=== PATIENT | female | born 1950 | race Caucasian/White ===

== ENCOUNTER 2020-04-21 08:11 | Outpatient (REF) | payer MEDICARE, SELFPAY ==
--- NOTE | 2020-04-21 | MM_ITS ---
EXAMINATION: MM SCREENING DIGITAL BREAST TOMOSYNTHESIS, BILATERAL CLINICAL INFORMATION: Screening. Asymptomatic. The lifetime risk of breast cancer based on the Tyrer-Cuzick Model is 5%. COMPARISON: Mammography: 05/17/2019, 04/12/2018, 03/07/2017, 04/03/2015, 03/14/2014, 11/02/2012 TECHNIQUE: Digital breast tomosynthesis is performed in both the craniocaudal and mediolateral oblique views along with computer-aided detection (CAD). Synthesized 2D images are generated from the tomosynthesis. FINDINGS: There are scattered areas of fibroglandular density (ACR BI-RADS breast composition Category b). There is a chronic macrolobulated nodule approximately 0.9 x 1.2 cm central 3:00 right breast similar to multiple prior exams. There is no interval mass or developing density or architectural abnormality. No abnormal calcifications. The axilla and skin contours are unremarkable. IMPRESSION: No significant changes from prior exams. ASSESSMENT: BI-RADS 2: Benign RECOMMENDATION: Routine annual mammography screening. This patient's information was entered into a reminder system with a target due date for their next mammogram.
== END 2020-04-21 08:12 | disposition home or self-care (01) ==
LOC: HO.MAMMO 08:11
PROVIDERS: PCP Internal Medicine; Visit Provider Internal Medicine
DX: Z12.31 Encounter for screening mammogram for malignant neoplasm of breast (principal)
CPT/HCPCS: 77063; 77067

== ENCOUNTER 2021-01-08 11:12 | Outpatient (REF) | payer MEDICARE, SELFPAY ==
--- NOTE | ~2021-01-08 | XR_ITS ---
EXAMINATION: XR CHEST CLINICAL INFORMATION: Asthma COMPARISON: None TECHNIQUE: 2 views of the chest were obtained. FINDINGS: The cardiac and mediastinal contours are normal. The lungs are clear. There is no pleural effusion or pneumothorax. There are degenerative changes of the body. XR/XR chest 2V IMPRESSION: No evidence for acute disease in the chest.
== END 2021-01-08 11:13 | disposition home or self-care (01) ==
LOC: HO.XRAY 11:12
PROVIDERS: PCP Internal Medicine; Visit Provider Internal Medicine
DX: J45.20 Mild intermittent asthma, uncomplicated (principal)
CPT/HCPCS: 71046

== ENCOUNTER 2021-04-26 08:33 | Outpatient (REF) | payer MEDICARE, SELFPAY ==
--- NOTE | ~2021-04-26 | MM_ITS ---
EXAMINATION: MM SCREENING DIGITAL BREAST TOMOSYNTHESIS, BILATERAL CLINICAL INFORMATION: Screening. Asymptomatic. The lifetime risk of breast cancer based on the Tyrer-Cuzick Model is 4%. COMPARISON: Mammography: 04/21/2020, 04/26/2019, 04/12/2018 TECHNIQUE: Digital breast tomosynthesis is performed in both the craniocaudal and mediolateral oblique views along with computer-aided detection (CAD). Synthesized 2D images are generated from the tomosynthesis. FINDINGS: There are scattered areas of fibroglandular density (ACR BI-RADS breast composition Category b). There are no significant masses, abnormal calcifications, or other abnormalities. Macrolobulated nodule central 3:00 right breast noted on prior exams is no longer demonstrated. MM/MM tomosynthesis screening BI IMPRESSION: No mammographic evidence of malignancy. ASSESSMENT: BI-RADS 2: Benign RECOMMENDATION: Routine annual mammography screening. This patient's information was entered into a reminder system with a target due date for their next mammogram.
== END 2021-04-26 08:34 | disposition home or self-care (01) ==
LOC: HO.MAMMO 08:33
PROVIDERS: Visit Provider Internal Medicine
DX: Z12.31 Encounter for screening mammogram for malignant neoplasm of breast (principal)
CPT/HCPCS: 77063; 77067

== ENCOUNTER 2021-05-28 08:01 | Outpatient (REF) | payer MEDICARE, SELFPAY ==
--- NOTE | ~2021-05-28 | MM_ITS ---
EXAMINATION: BONE DENSITOMETRY CLINICAL INDICATION: Other disorders of bone density and structure, right lower leg. COMPARISON: Previous BD dated 04/16/2019 and baseline BD dated 03/07/2017. TECHNIQUE: Using a [employer] DXA System (software version: 13.1) manufactured by [employer], dual-energy x-ray absorptiometry was performed of the lumbar spine and left hip. The images are of good technical quality. Summary results are attached. FINDINGS: AP SPINE L1-L4 (excluding L3): The data of L1-L4 has been changed to exclude the L3 vertebral body, because degenerative changes at this level may cause overestimation of lumbar spine density. Current: BMD 1.023 g/cm2, Z-score -0.6, T-score -1.2, osteopenia, 4.5% decrease from previous, 0.5% decrease from baseline (<5% change is not significant). Prior: BMD 1.071 g/cm2. Baseline: BMD 1.028 g/cm2. LEFT FEMUR, NECK: Current: BMD 0.800 g/cm2, Z-score -0.7, T-score -1.7, osteopenia. Prior: BMD 0.823 g/cm2. Baseline: BMD 0.864 g/cm2. LEFT FEMUR, TOTAL: Current: BMD 0.933 g/cm2, Z-score 0.1, T-score -0.6, normal, 5.2% decrease from previous, 6.6% decrease from baseline (<5% change is not significant). Prior: BMD 0.984 g/cm2. Baseline: BMD 0.999 g/cm2. IDENTIFIED RISK FACTORS: Menopause, hysterectomy, bilateral oophorectomy. HISTORY OF FRACTURE: None listed. MEDICATIONS: Calcium supplements or multivitamin, vitamin D. MM/XR DEXA axial skeleton IMPRESSION: 1. DIAGNOSIS: Osteopenia based on the lowest T-score value of -1.7 in the femoral neck applying World Health Organization criteria. 2. 10-YEAR FRACTURE RISK PREDICTION, FRAX: Major osteoporotic fracture (clinical spine, forearm, hip or shoulder) 9.7%. Hip fracture 1.5%. 3. Treatment Recommendations: NOF guidelines recommend consideration for treatment in postmenopausal women and men age 50 and older presenting with the following: -A hip or vertebral (clinical or morphometric) fracture. -T-score less than or equal to -2.5 at the femoral neck or spine after appropriate evaluation to exclude secondary causes. -Low bone mass at the hip or spine and a 10-year fracture probability by FRAX of greater than or equal to 3% for hip fracture or greater than or equal to 20% for major osteoporotic fracture based on the [place] adapted WHO algorithm. 4. Other Recommendations: All treatment decisions require clinical judgment and consideration of individual patient factors, including patient preferences, comorbidities, previous drug use, risk factors not captured in the FRAX model (e.g. frailty, falls, vitamin D deficiency, increased bone turnover, interval significant decline in bone density) and possible under or overestimation of fracture risk by FRAX. Additional medical evaluation for secondary cause of low bone mineral density may be appropriate. FUTURE SCAN RECOMMENDATION: People with diagnosed cases of osteoporosis or at high risk for fracture should have regular bone mineral density tests. For patients eligible for Medicare, routine testing is allowed once every 2 years. The testing frequency can be increased to one year for patients who have rapidly progressing disease, those who are receiving or discontinuing medical therapy to restore bone mass, or have additional risk factors.
== END 2021-05-28 08:02 | disposition home or self-care (01) ==
LOC: HO.MAMMO 08:01
PROVIDERS: Visit Provider Internal Medicine
DX: Z13.820 Encounter for screening for osteoporosis (principal); M85.861 Other specified disorders of bone density and structure, right lower leg; M85.80 Other specified disorders of bone density and structure, unspecified site; Z78.0 Asymptomatic menopausal state; Z90.722 Acquired absence of ovaries, bilateral; Z79.899 Other long term (current) drug therapy
CPT/HCPCS: 77080

== ENCOUNTER 2021-06-15 10:27 | Outpatient (REF) | payer MEDICARE, SELFPAY ==
[2021-06-15 10:30] LABS: MANUAL DIFF FLAG NO
[2021-06-15 10:36] LABS: Basophils Percent Auto 0.3 % (0-2); Eosinophils Absolute Auto 0.3 X10*3/uL (0.0-0.4); Eosinophils Percent Auto 2.5 % (0-4); Hematocrit 39.4 % (37.0-47.0); Hemoglobin 12.8 g/dl (12.0-16.0); Imm Gran Abs Auto 0.04 X10*3/uL (0.00-0.03); Imm Gran Pct Auto 0.4 % (0.0-0.4); Lymphocytes Absolute Auto 2.2 X10*3/uL (1.2-4.9); Lymphocytes Percent Auto 21.1 % (20-40); Mean Corpuscular HGB Conc 32.5 g/dl (31.0-35.0); Mean Corpuscular Hemoglobin 26.8 pg (27.0-33.0); Mean Corpuscular Volume 82.4 fL (80.0-98.0); Mean Platelet Volume 10.6 fL (9.4-12.3); Monocytes Absolute Auto 0.9 X10*3/uL (0.1-1.2); Monocytes Percent Auto 8.4 % (2-11); Neutrophils Absolute Auto 6.9 x10*3/uL (2.0-8.3); Neutrophils Percent Auto 67.3 % (45-73); Platelet Count 276 X10*3/uL (160-400); Red Blood Count 4.78 X10*6/uL (4.20-5.50); Red Cell Distribution Width 13.7 % (11.0-16.0); White Blood Count 10.2 X10*3/uL (4.8-10.8)
[2021-06-15 10:48] LABS: Alanine Aminotransferase 27 U/L (0-31); Alkaline Phosphatase 97 U/L (39-117); Anion Gap 13 (12-20); Aspartate Amino Transferase 22 U/L (5-31); Bilirubin Total 0.5 mg/dL (0.0-1.0); Blood Urea Nitrogen 18 mg/dL (9-16); Calcium 9.4 mg/dL (8.4-10.2); Carbon Dioxide 22 mmol/L (22-29); Chloride 111 mmol/L (96-108); Cholesterol 181 mg/dL; Estimated Glomerular Filt Rate > 60; Glucose Fasting 95 mg/dL (60-99); HDL Cholesterol 47 mg/dL; LDL Cholesterol Calculated 119 mg/dl; Potassium 4.3 mmol/L (3.3-5.1); Sodium 142 mmol/L (135-145); Total Protein 6.3 g/dL (6.5-8.0); Triglycerides 75 mg/dL
== END 2021-06-15 10:28 | disposition home or self-care (01) ==
LOC: HO.LNP 10:27
PROVIDERS: Visit Provider Internal Medicine
DX: Z00.00 Encounter for general adult medical examination without abnormal findings (principal); R09.89 Other specified symptoms and signs involving the circulatory and respiratory systems
CPT/HCPCS: 80053; 80061; 85025

== ENCOUNTER 2022-05-02 09:34 | Outpatient (REF) | payer MEDICARE, SELFPAY ==
--- NOTE | ~2022-05-02 | MM_ITS ---
EXAMINATION: MM SCREENING DIGITAL BREAST TOMOSYNTHESIS, BILATERAL CLINICAL INFORMATION: Screening. Asymptomatic. The lifetime risk of breast cancer based on the Tyrer-Cuzick Model is 3.6%. COMPARISON: Mammography: April 26, 2021 and studies dating back to April 03, 2015 TECHNIQUE: Digital breast tomosynthesis is performed in both the craniocaudal and mediolateral oblique views along with computer-aided detection (CAD). Synthesized 2D images are generated from the tomosynthesis. Additional left breast exaggerated craniocaudal view performed. FINDINGS: There are scattered areas of fibroglandular density (ACR BI-RADS breast composition Category b). There are no significant masses, abnormal calcifications, or other abnormalities. MM/MM tomosynthesis screening BI IMPRESSION: No significant changes from prior exam. ASSESSMENT: BI-RADS 1: Negative RECOMMENDATION: Routine annual mammography screening. This patient's information was entered into a reminder system with a target due date for their next mammogram.
== END 2022-05-02 09:35 | disposition home or self-care (01) ==
LOC: HO.MAMMO 09:34
PROVIDERS: PCP Internal Medicine; Visit Provider Internal Medicine
DX: Z12.31 Encounter for screening mammogram for malignant neoplasm of breast (principal)
CPT/HCPCS: 77063; 77067

== ENCOUNTER 2022-06-17 10:42 | Outpatient (REF) | payer MEDICARE, SELFPAY ==
[2022-06-17 10:58] LABS: MANUAL DIFF FLAG NO
[2022-06-17 11:27] LABS: Basophils Percent Auto 0.4 % (0-2); Eosinophils Absolute Auto 0.2 X10*3/uL (0.0-0.4); Eosinophils Percent Auto 1.7 % (0-4); Hematocrit 35.9 % (37.0-47.0); Hemoglobin 11.5 g/dl (12.0-16.0); Imm Gran Abs Auto 0.04 X10*3/uL (0.00-0.03); Imm Gran Pct Auto 0.4 % (0.0-0.4); Lymphocytes Absolute Auto 2.2 X10*3/uL (1.2-4.9); Lymphocytes Percent Auto 23.8 % (20-40); Mean Corpuscular Hemoglobin 26.8 pg (27.0-33.0); Mean Corpuscular Volume 83.7 fL (80.0-98.0); Monocytes Absolute Auto 0.8 X10*3/uL (0.1-1.2); Monocytes Percent Auto 8.7 % (2-11); Neutrophils Absolute Auto 6.1 x10*3/uL (2.0-8.3); Platelet Count 317 X10*3/uL (160-400); Red Blood Count 4.29 X10*6/uL (4.20-5.50); Red Cell Distribution Width 12.8 % (11.0-16.0); White Blood Count 9.3 X10*3/uL (4.8-10.8)
[2022-06-17 11:38] LABS: Appearance Urine Hazy; Color Urine Yellow; Glucose Urine UA Negative (Negative); Leukocyte Esterase Urine Negative (Negative); Nitrite Urine Negative (Negative); Specific Gravity - Urine 1.025 (1.005-1.025); Urine Blood Negative (Negative); Urine Ketones Negative (Negative); Urine Protein Negative (Neg-Trace)
[2022-06-17 11:47] LABS: Alanine Aminotransferase 20 U/L (0-31); Albumin Level 4.3 g/dL (3.5-5.0); Alkaline Phosphatase 92 U/L (39-117); Anion Gap 14 (12-20); Aspartate Amino Transferase 18 U/L (5-31); Blood Urea Nitrogen 20 mg/dL (9-16); Calcium 9.5 mg/dL (8.4-10.2); Carbon Dioxide 26 mmol/L (22-29); Chloride 104 mmol/L (96-108); Cholesterol 220 mg/dL; Estimated Glomerular Filt Rate 43; Glucose Fasting 105 mg/dL (60-99); HDL Cholesterol 47 mg/dL; LDL Cholesterol Calculated 151 mg/dl; Potassium 4.1 mmol/L (3.3-5.1); Sodium 140 mmol/L (135-145); Total Protein 6.6 g/dL (6.5-8.0); Triglycerides 110 mg/dL
[2022-06-17 11:54] LABS: Bacteria Urine Trace (None Seen); Hyaline Casts Urine 0-2 /LPF (0-2); RBC Urine 0-2 /HPF (0-2); Squamous Epithelial Cell Urine >20 /HPF (0-2); WBC Urine 0-5 /HPF (0-5)
[2022-06-17 12:11] LABS: Bilirubin Total 0.4 mg/dL (0.0-1.0)
== END 2022-06-17 10:43 | disposition home or self-care (01) ==
LOC: HO.LNP 10:42
PROVIDERS: Visit Provider Internal Medicine
DX: Z00.00 Encounter for general adult medical examination without abnormal findings (principal); I10 Essential (primary) hypertension
CPT/HCPCS: 80053; 80061; 81001; 85025

== ENCOUNTER 2022-07-14 10:46 | Outpatient (REF) | payer MEDICARE, SELFPAY ==
[2022-07-14 11:39] LABS: Folate 17.6 ng/mL (> or = 4.0); Vitamin B12 696 pg/mL (200-900)
[2022-07-14 11:42] LABS: TSH reflex Free T4 1.86 uIU/mL (0.32-4.0)
== END 2022-07-14 10:47 | disposition home or self-care (01) ==
LOC: HO.LNP 10:46
PROVIDERS: PCP Internal Medicine; Visit Provider Internal Medicine
DX: I10 Essential (primary) hypertension (principal); R26.89 Other abnormalities of gait and mobility; R27.9 Unspecified lack of coordination
CPT/HCPCS: 82607; 82746; 84443

== ENCOUNTER 2022-07-18 10:53 | Outpatient (REF) | payer MEDICARE, SELFPAY ==
[2022-07-18 10:55] LABS: MANUAL DIFF FLAG NO
[2022-07-18 11:15] LABS: Basophils Percent Auto 0.3 % (0-2); Eosinophils Absolute Auto 0.3 X10*3/uL (0.0-0.4); Eosinophils Percent Auto 2.3 % (0-4); Hematocrit 36.5 % (37.0-47.0); Imm Gran Abs Auto 0.06 X10*3/uL (0.00-0.03); Imm Gran Pct Auto 0.5 % (0.0-0.4); Lymphocytes Absolute Auto 2.8 X10*3/uL (1.2-4.9); Lymphocytes Percent Auto 22.2 % (20-40); Mean Corpuscular HGB Conc 32.9 g/dl (31.0-35.0); Mean Corpuscular Hemoglobin 27.1 pg (27.0-33.0); Mean Corpuscular Volume 82.4 fL (80.0-98.0); Monocytes Absolute Auto 1.1 X10*3/uL (0.1-1.2); Monocytes Percent Auto 8.6 % (2-11); Neutrophils Absolute Auto 8.2 x10*3/uL (2.0-8.3); Neutrophils Percent Auto 66.1 % (45-73); Platelet Count 377 X10*3/uL (160-400); Red Blood Count 4.43 X10*6/uL (4.20-5.50); Red Cell Distribution Width 13.1 % (11.0-16.0); White Blood Count 12.4 X10*3/uL (4.8-10.8)
== END 2022-07-18 10:54 | disposition home or self-care (01) ==
LOC: HO.LNP 10:53
PROVIDERS: Visit Provider Internal Medicine
DX: D64.9 Anemia, unspecified (principal)
CPT/HCPCS: 85025

== ENCOUNTER → 2022-07-27 13:41 | Outpatient (REF) | payer MEDICARE, SELFPAY ==
--- NOTE | 2022-07-27 13:45 | HM_ITS ---
cardiac event monitor: Technique: Patient was worked up with cardiac event monitor on 07/27/2022 for total period of 30 days. Compliance rate was 85%. Quality of data was adequate Findings: Baseline was normal sinus rhythm with heart rate within normal limits 82% of the time. No significant episodes of sinus tachycardia sinus bradycardia noted. No significant pauses or AV block noted. Frequent isolated ventricular ectopy noted, 3% of the time. No significant ventricular tachyarrhythmias noted Rare PACs noted with overall short episodes of paroxysmal atrial tachycardia noted. Patient reported multiple events, symptoms reported 12 times of racing or fast heart rate correlated with either PVCs or sinus tachycardia. symptoms of dizziness, nausea and other non reported symptoms correlated with sinus rhythm. Patient reported 10 times shortness of breath which correlated with sinus rhythm. Patient reported 1 episode of irregular heartbeat/ flutter that correlated which short run of paroxysmal atrial tachycardia. Conclusion: 1. Baseline was normal sinus rhythm without significant pauses 2. Frequent isolated PVCs noted With total burden of 3% 3. Patient's symptoms of racing of fast heart rate correlated with PVCs and 1 episode of fluttering correlated with short episode of paroxysmal atrial tachycardia. [facility]
== END ==
LOC: HO.CARD 13:41
PROVIDERS: PCP Internal Medicine; Visit Provider Internal Medicine
DX: R00.2 Palpitations (principal)
CPT/HCPCS: 93270

== ENCOUNTER 2022-10-06 12:04 | Outpatient (REF) | payer MEDICARE, SELFPAY ==
--- NOTE | ~2022-10-06 | US_ITS ---
EXAMINATION: US THYROID CLINICAL INFORMATION: Thyroid nodule. COMPARISON: None available. TECHNIQUE: Linear transducer grayscale and color Doppler examination with attention to the region of the thyroid. FINDINGS: SIZE: Measurements of the thyroid lobes and nodules are given in sagittal, anteroposterior and transverse dimensions respectively. Right Thyroid Lobe: 5.2 x 2.1 x 2.1 cm, volume 12.0 mL. Parenchyma: The gland echotexture is homogeneous. Thyroid vascularity is normal. Left Thyroid Lobe: 4.5 x 1.7 x 1.4 cm, volume 5.6 mL. Parenchyma: The gland echotexture is homogeneous. Thyroid vascularity is normal. Isthmus: 0.3 cm in maximum AP dimension. Estimated total number of nodules greater than or equal to 1 cm: 1. Ferris Wheel Attendant nodules are described as follows: 1. Location: Right mid. Size: 2.7 x 1.4 x 2.1 cm, volume 4.1 mL. Nodule characteristics: Composition: Solid (2). Echogenicity: Hypoechoic (2). Shape: Not taller than wide (0). Margins: Smooth (0). Echogenic Foci: None (0). ACR TI-RADS total points: 4 ACR TI-RADS category: 4 NODES: No lymphadenopathy is seen in the tissue surrounding the thyroid gland. US/US thyroid IMPRESSION: Right Midpole 2.7 cm TI-RADS 4 nodule. Per ACR criteria given size equal to or greater than 1.5 cm, FNA is recommended ACR TI-RADS RECOMMENDATION REFERENCE: Ultrasound-guided fine-needle aspiration, followup ultrasound, no further follow up. * TR1 (0 point) and TR2 (2 points): No FNA or follow up. * TR3 (3 points): FNA if more than or equal to 2.5 cm in maximum dimension, followup ultrasound in 1, 3 and 5 years if 1.5 to 2.4 cm in maximum dimension. * TR4 (4-6 points): FNA if more than or equal to 1.5 cm in maximum dimension, followup ultrasound in 1, 2, 3 and 5 years if 1 to 1.4 cm in maximum dimension. * TR5 (more than or equal to 7 points): FNA if more than or equal to 1 cm in maximum dimension, followup ultrasound every year for 5 years if 0.5 to 0.9 cm in maximum dimension. * TR3, TR4 or TR5 nodules that are below the size threshold for followup receive no follow up.
== END 2022-10-06 12:05 | disposition home or self-care (01) ==
LOC: HO.US 12:04
PROVIDERS: Absent Provider Psychiatry & Neurology Neurology; PCP Internal Medicine; Referring Provider Internal Medicine Cardiovascular Disease; Visit Provider Internal Medicine
DX: E04.1 Nontoxic single thyroid nodule (principal)
CPT/HCPCS: 76536

== ENCOUNTER → 2022-10-19 14:39 | Outpatient (BNVA) | payer MEDICARE, SELFPAY | PROVIDERS: PCP Internal Medicine; Referring Provider Internal Medicine; Visit Provider Internal Medicine | DX: R00.2 Palpitations (principal); I34.0 Nonrheumatic mitral (valve) insufficiency | CPT/HCPCS: 93005; 99202 ==

== ENCOUNTER → 2022-10-28 09:54 | Outpatient (BNVA) | payer MEDICARE, SELFPAY | PROVIDERS: PCP Internal Medicine; Visit Provider Physician Assistant | DX: M48.02 Spinal stenosis, cervical region (principal) | CPT/HCPCS: 99202 ==

== ENCOUNTER 2022-11-04 | Outpatient (REF) | payer MEDICARE, SELFPAY | END 2022-11-04 00:01 | LOC: HO.US | PROVIDERS: PCP Internal Medicine; Visit Provider Internal Medicine | DX: E04.1 Nontoxic single thyroid nodule (principal) | CPT/HCPCS: 88172; 88173; 88177; 88305 ==

== ENCOUNTER → 2022-11-04 07:59 | Outpatient (REF) | payer MEDICARE, SELFPAY ==
--- NOTE | ~2022-11-04 | US_ITS ---
PROCEDURE: ULTRASOUND-GUIDED FINE-NEEDLE ASPIRATION CLINICAL INFORMATION: Right thyroid nodule. COMPARISON: Previous thyroid ultrasound September 2022. TECHNIQUE: Procedure and risks and benefits including bleeding and infection were discussed with the patient and informed consent was obtained. The right neck was prepped and draped in the usual sterile fashion. The skin and soft tissues were anesthetized with 1% lidocaine plain. Using ultrasound guidance and a 25-gauge needle, access to the nodule in the posterior mid right thyroid gland was obtained. Four 25-gauge specimens were obtained. There was no complication. FINDINGS: There is a 2.5 x 1.3 x 1.4 cm nodule in the posterior mid right lobe that was targeted for fine-needle aspiration. US/US guided fine needle asp IMPRESSION: Ultrasound-guided right thyroid biopsy.
--- NOTE | 2022-11-04 08:02 | CA_ITS ---
Transthoracic Echocardiogram Patient (Last, First, Middle): Aretha Khan L Gender: Female Date of : 1950 Age: 72 Procedure Date: 11/04/2022 Procedure Type: Transthoracic Echocardiogram Location: OP Height: 167.64 cm Weight: 87.09 kg BSA: 1.97 m2 Heart Rate: 64 bpm BP: 132 / 64 mmHg Investment Banking Associate: SB Referring MD: Robin Argueta MD Symptoms: I34.0 - Nonrheumatic mitral (valve) insufficiency Study Quality: Adequate ECG Rhythm: Sinus Conclusions: - Mildly increased left ventricular cavity size. There is normal left ventricular wall thickness. The left ventricular systolic function is normal. The visually estimated ejection fraction is between 55-60%. - Normal right ventricular cavity size and systolic function. - There is moderate mitral annular calcification. There is no mitral valve regurgitation. There is no mitral valve stenosis. Findings Left Ventricle Mildly increased left ventricular cavity size. There is normal left ventricular wall thickness. The left ventricular systolic function is normal. The visually estimated ejection fraction is between 55-60%. Abnormal diastolic function is noted. Spectral Doppler is indicative of an impaired relaxation filling pattern. E/E prime ratio is between 8 and 15 consistent with indeterminate filling pressures. Right Ventricle Normal right ventricular cavity size and systolic function. Atria The left atrium is mildly dilated. The right atrium is normal in size. Aortic Valve Normal aortic valve structure and function. There is no aortic valve stenosis. There is mild aortic valve regurgitation. Mitral Valve The mitral valve appears normal. There is moderate mitral annular calcification. There is no mitral valve regurgitation. There is no mitral valve stenosis. Pulmonic Valve The pulmonic valve is likely normal. Tricuspid Valve Normal tricuspid valve structure and function. There is trace tricuspid valve regurgitation. Normal right atrial pressure. There is no evidence of pulmonary hypertension. Great Vessels All visible segments of the aorta are normal in size. The visualized portions of the pulmonary artery and branches are normal. Venous The inferior vena cava is normal in size and collapses greater than 50% with inspiration. Pericardium/Pleural There is no evidence of pericardial effusion. Measurements 2D Linear Measurements IVSd: 0.78 0.6-0.9/0.6-1.0 cm LVIDd: 5.12 3.9-5.3/4.2-5.9 cm LVIDd Index: 2.60 2.4-3.2/2.2-3.1 cm/m2 LVIDs: 3.49 2.0-3.6 cm LVPWd: 0.70 0.7-1.1 cm LA Diam: 3.80 2.7-3.8/3.0-4.0 cm LAIDs Index: 1.93 1.5-2.3 cm/m2 LV Mass: 159.00 67-162/88-224 g LV Mass Index: 80.71 43-95/49-115 g/m2 LVOT Diam: 1.90 3.0+(-)1.3 cm 2D Systolic Function EF 4C: 62.50 >55% EF 2C: 60.50 >55% EF BiP: 62.00 >55% Mitral Valve MV Pk E: 0.71 MV PK A: 0.81 MV Decel Time: 165.00 E/A: 0.90 E'Lateral: 8.27 E'Medial: 5.11 E/E' Med: 13.80 E/E' Lat: 8.50 PHT: 48.00 MVA PHT: 4.58 Decel [place]: 4.27 Aortic Valve AoV Pk Fredy: 1.84 AoV Mn Fredy: 1.20 AoV VTI: 0.38 AoV Pk Grad: 14.00 Aov Mn Grad: 7.00 CHASE Cont.VTI: 2.53 AI Pk Fredy: 4.40 AI [place]: 2.48 LVOT LVOT Pk Fredy: 1.57 LVOT Mn Fredy: 1.07 LVOT VTI: 0.34 LVOT Pk Grad: 10.00 LVOT Mn Grad: 6.00 LVOT Diam: 1.90 LVOT Area: 2.84 Diastolic Function MV Pk E: 0.71 MV Pk A: 0.81 E/A: 0.90 E'Medial: 5.11 E/E' Med: 13.80 E' Laterial: 8.27 E/E' Lat: 8.50 Right Ventricle TAPSE (mm): 19.10 TVS' Fredy: 10.90 Tricuspid Valve TR Pk Fredy: 2.44 TR Pk Grad: 24.00 RA Press: 3.00 RVSP: 27.00 Great Vessels Aorta Sinus of Valsalva: 3.10 2.0-3.5 cm Ao Asc: 3.10 2.1-3.4 cm Pulmonary Veins Pulm Vein S/D 1.90 Pulmonary Valve PV Pk Fredy: 0.75 Peak PV Grad: 2.00 Updated in Other Vendor System with Status of Final Jesse Davidson MD electronically signed on 11/05/2022 9:32:51 PM with status of Final
[2022-11-04] MEDS: Lidocaine HCl 1 % MPF 5 ML VIAL SUBCUT (10:24)
== END ==
LOC: HO.CARD 07:59
PROVIDERS: PCP Internal Medicine; Visit Provider Internal Medicine
DX: I34.0 Nonrheumatic mitral (valve) insufficiency (principal); E04.1 Nontoxic single thyroid nodule
CPT/HCPCS: 10005; 93306

== ENCOUNTER → 2022-12-15 11:35 | Outpatient (BNVA) | payer MEDICARE, SELFPAY | PROVIDERS: PCP Internal Medicine; Visit Provider Internal Medicine | DX: E04.1 Nontoxic single thyroid nodule (principal) | CPT/HCPCS: 99202 ==

== ENCOUNTER 2022-12-16 08:54 | Outpatient (REF) | payer MEDICARE, SELFPAY ==
[2022-12-16 12:27] LABS: Free T4 (Free Thyroxine) 0.96 ng/dL (0.71-1.85)
== END 2022-12-16 08:55 | disposition home or self-care (01) ==
LOC: HO.WFDLDS 08:54
PROVIDERS: Visit Provider Internal Medicine
DX: E04.1 Nontoxic single thyroid nodule (principal)
CPT/HCPCS: 36415; 84439; 84443

== ENCOUNTER 2022-12-27 14:06 | Outpatient (REF) | payer MEDICARE, SELFPAY ==
--- NOTE | ~2022-12-27 | CT_ITS ---
EXAMINATION: CT SOFT TISSUE NECK WITHOUT CONTRAST CLINICAL INFORMATION: Nontoxic single thyroid nodule. COMPARISON: Thyroid ultrasound October 06, 2022. TECHNIQUE: Helical imaging was performed in the axial plane with generation of coronal and sagittal reformatted images. This CT examination was performed using dose optimization techniques as appropriate, variously including the following: *Automated exposure control *Adjustment of mA and/or kV according to patient size (this includes techniques or standardized protocols for targeted exams where dose is matched to indication/reason for exam; i.e. extremities or head) *Use of iterative reconstruction technique DLP: 360 mGy-cm FINDINGS: There is a 1.9 cm nodule within the right lobe of the thyroid gland which has been diagnostically characterized on prior thyroid ultrasound. There is no inflammation within the perithyroidal tissues. No pretracheal or prelaryngeal lymph nodes are seen. No enlarged, calcified, or cystic cervical chain lymph nodes are seen. The parotid and submandibular glands appear normal. The pharyngeal and laryngeal contours appear normal. There is no consolidation within the lungs. No acute intracranial abnormality is seen. Advanced degenerative changes are seen within the cervical spine. There is moderate to severe spinal canal stenosis at C5-C6. Multilevel high-grade neural foraminal stenosis is also demonstrated. CT/CT soft tissue neck wo IV con IMPRESSION: 1. No neck mass or suspicious lymphadenopathy identified. A 1.9 cm nodule is seen within the right lobe of the thyroid gland which has been diagnostically characterized on prior thyroid ultrasound. 2. Incidentally noted advanced degenerative changes in the cervical spine with moderate to severe spinal canal stenosis at C5-C6 and multilevel high-grade neural foraminal stenosis.
== END 2022-12-27 14:07 | disposition home or self-care (01) ==
LOC: HO.CT 14:06
PROVIDERS: PCP Internal Medicine; Visit Provider Internal Medicine
DX: E04.1 Nontoxic single thyroid nodule (principal)
CPT/HCPCS: 70490

== ENCOUNTER 2023-03-23 10:40 | Outpatient (REF) | payer MEDICARE, SELFPAY ==
[2023-03-23] MEDS: Lidocaine HCl 1 % MPF 5 ML VIAL SUBCUT (14:01)
== END 2023-03-23 10:41 | disposition home or self-care (01) ==
LOC: HO.US 10:40
PROVIDERS: PCP Internal Medicine; Visit Provider Internal Medicine
DX: E04.1 Nontoxic single thyroid nodule (principal)
CPT/HCPCS: 10005; 88173; 88305

== ENCOUNTER 2023-05-05 09:28 | Outpatient (REF) | payer MEDICARE, SELFPAY | END 2023-05-05 09:29 | disposition home or self-care (01) | LOC: HO.MAMMO 09:28 | PROVIDERS: PCP Internal Medicine; Visit Provider Internal Medicine | DX: Z12.31 Encounter for screening mammogram for malignant neoplasm of breast (principal) | CPT/HCPCS: 77063; 77067 ==

== ENCOUNTER → 2023-05-05 09:45 | Outpatient (BNV) | payer MEDICARE, SELFPAY | PROVIDERS: PCP Internal Medicine; Visit Provider Radiology Diagnostic Radiology | DX: Z12.31 Encounter for screening mammogram for malignant neoplasm of breast (principal) | CPT/HCPCS: 77063; 77067 ==

== ENCOUNTER 2023-07-18 09:20 | Outpatient (REF) | payer MEDICARE, SELFPAY ==
[2023-07-18 11:12] LABS: MANUAL DIFF FLAG NO
[2023-07-18 11:20] LABS: Basophils Percent Auto 0.3 % (0-2); Eosinophils Absolute Auto 0.2 X10*3/uL (0.0-0.4); Eosinophils Percent Auto 1.8 % (0-4); Hemoglobin 12.3 g/dl (12.0-16.0); Imm Gran Abs Auto 0.03 X10*3/uL (0.00-0.03); Imm Gran Pct Auto 0.3 % (0.0-0.4); Lymphocytes Absolute Auto 1.5 X10*3/uL (1.2-4.9); Mean Corpuscular HGB Conc 33.2 g/dl (31.0-35.0); Mean Corpuscular Hemoglobin 26.6 pg (27.0-33.0); Mean Corpuscular Volume 80.1 fL (80.0-98.0); Mean Platelet Volume 9.4 fL (9.4-12.3); Monocytes Absolute Auto 0.8 X10*3/uL (0.1-1.2); Monocytes Percent Auto 8.8 % (2-11); Neutrophils Absolute Auto 6.9 x10*3/uL (2.0-8.3); Neutrophils Percent Auto 72.8 % (45-73); Platelet Count 274 X10*3/uL (160-400); Red Blood Count 4.62 X10*6/uL (4.20-5.50); Red Cell Distribution Width 13.6 % (11.0-16.0); White Blood Count 9.5 X10*3/uL (4.8-10.8)
[2023-07-18 12:25] LABS: Alanine Aminotransferase 23 U/L (0-31); Albumin Level 4.3 g/dL (3.5-5.0); Alkaline Phosphatase 102 U/L (39-117); Anion Gap 12 (12-20); Aspartate Amino Transferase 19 U/L (5-31); Bilirubin Total 0.3 mg/dL (0.0-1.0); Blood Urea Nitrogen 22 mg/dL (9-16); Calcium 9.7 mg/dL (8.4-10.2); Carbon Dioxide 24 mmol/L (22-29); Chloride 107 mmol/L (96-108); Cholesterol 217 mg/dL (<200); Estimated Glomerular Filt Rate 52; Glucose Fasting 104 mg/dL (60-99); HDL Cholesterol 54 mg/dL (>40); LDL Cholesterol Calculated 144 mg/dL (<100); Potassium 4.3 mmol/L (3.3-5.1); Sodium 139 mmol/L (135-145); Total Protein 7.2 g/dL (6.5-8.0); Triglycerides 95 mg/dL (<150)
[2023-07-18 12:46] LABS: TSH reflex Free T4 2.25 uIU/mL (0.32-4.0)
== END 2023-07-18 09:21 | disposition home or self-care (01) ==
LOC: HO.WFDLDS 09:20
PROVIDERS: Visit Provider Internal Medicine
DX: I10 Essential (primary) hypertension (principal); D72.829 Elevated white blood cell count, unspecified; E04.1 Nontoxic single thyroid nodule
CPT/HCPCS: 36415; 80053; 80061; 84443; 85025

== ENCOUNTER 2024-05-10 09:11 | Outpatient (REF) | payer MEDICARE, SELFPAY ==
--- NOTE | ~2024-05-10 | MM_ITS ---
EXAMINATION: MM SCREENING DIGITAL BREAST TOMOSYNTHESIS, BILATERAL CLINICAL INFORMATION: Screening. Asymptomatic. COMPARISON: Mammography: Comparison is made with available priors TECHNIQUE: Digital breast mammography with tomosynthesis is performed in both the craniocaudal and mediolateral oblique views along with computer-aided detection (CAD). FINDINGS: There are scattered areas of fibroglandular density (ACR BI-RADS breast composition Category b). There are no significant masses, abnormal calcifications, or other abnormalities. MM/MM tomosynthesis screening BI IMPRESSION: No mammographic evidence of malignancy. ASSESSMENT: BI-RADS BI-RADS 1 - Negative RECOMMENDATION: Routine annual mammography screening. 1 year F/U This examination should not preclude the clinical evaluation of a suspicious palpable abnormality. This patient's information was entered into a reminder system with a target due date for their next mammogram. Electronically signed by: Alyssa Dupont DO 05/17/2024 04:23 PM [facility]
== END 2024-05-10 09:12 | disposition home or self-care (01) ==
LOC: HO.MAMMO 09:11
PROVIDERS: PCP Internal Medicine; Visit Provider Internal Medicine
DX: Z12.31 Encounter for screening mammogram for malignant neoplasm of breast (principal)
CPT/HCPCS: 77063; 77067

== ENCOUNTER → 2024-05-10 09:45 | Outpatient (BNV) | payer MEDICARE, SELFPAY | PROVIDERS: PCP Internal Medicine; Visit Provider Internal Medicine | DX: Z12.31 Encounter for screening mammogram for malignant neoplasm of breast (principal) | CPT/HCPCS: 77063; 77067 ==

== ENCOUNTER 2024-07-25 09:57 | Outpatient (REF) | payer MEDICARE, SELFPAY ==
[2024-07-25 11:12] LABS: MANUAL DIFF FLAG NO
[2024-07-25 11:24] LABS: Basophils Percent Auto 0.4 % (0-2); Eosinophils Absolute Auto 0.1 X10*3/uL (0.0-0.4); Eosinophils Percent Auto 1.3 % (0-4); Hematocrit 37.5 % (37.0-47.0); Hemoglobin 12.3 g/dl (12.0-16.0); Imm Gran Abs Auto 0.03 X10*3/uL (0.00-0.03); Imm Gran Pct Auto 0.3 % (0.0-0.4); Lymphocytes Absolute Auto 1.8 X10*3/uL (1.2-4.9); Lymphocytes Percent Auto 18.9 % (20-40); Mean Corpuscular HGB Conc 32.8 g/dl (31.0-35.0); Mean Corpuscular Hemoglobin 26.2 pg (27.0-33.0); Mean Platelet Volume 9.5 fL (9.4-12.3); Monocytes Absolute Auto 0.7 X10*3/uL (0.1-1.2); Monocytes Percent Auto 7.2 % (2-11); Neutrophils Absolute Auto 6.6 x10*3/uL (2.0-8.3); Neutrophils Percent Auto 71.9 % (45-73); Platelet Count 340 X10*3/uL (160-400); Red Blood Count 4.69 X10*6/uL (4.20-5.50); Red Cell Distribution Width 14.5 % (11.0-16.0); White Blood Count 9.3 X10*3/uL (4.8-10.8)
[2024-07-25 12:19] LABS: Alanine Aminotransferase 20 U/L (0-31); Albumin Level 4.2 g/dL (3.5-5.0); Alkaline Phosphatase 95 U/L (39-117); Anion Gap 10 (12-20); Aspartate Amino Transferase 22 U/L (5-31); Bilirubin Total 0.3 mg/dL (0.0-1.0); Blood Urea Nitrogen 24 mg/dL (9-16); Calcium 9.5 mg/dL (8.4-10.2); Carbon Dioxide 26 mmol/L (22-29); Chloride 109 mmol/L (96-108); Cholesterol 232 mg/dL (<200); Estimated Glomerular Filt Rate 47; Glucose Fasting 90 mg/dL (60-99); HDL Cholesterol 47 mg/dL (>40); LDL Cholesterol Calculated 163 mg/dL (<100); Potassium 4.2 mmol/L (3.3-5.1); Sodium 141 mmol/L (135-145); Total Protein 7.5 g/dL (6.5-8.0); Triglycerides 112 mg/dL (<150)
== END 2024-07-25 09:58 | disposition home or self-care (01) ==
LOC: HO.WFDLDS 09:57
PROVIDERS: Visit Provider Internal Medicine
DX: Z00.00 Encounter for general adult medical examination without abnormal findings (principal); I10 Essential (primary) hypertension; D72.829 Elevated white blood cell count, unspecified
CPT/HCPCS: 36415; 80053; 80061; 85025

== ENCOUNTER 2024-08-01 10:51 | Outpatient (REF) | payer MEDICARE, SELFPAY ==
[2024-08-01 11:16] LABS: Appearance Urine Clear; Color Urine Yellow; Glucose Urine UA Negative (Negative); Leukocyte Esterase Urine Negative (Negative); Nitrite Urine Negative (Negative); PH 5.5 (5.0-9.0); Urine Blood Negative (Negative); Urine Ketones Negative (Negative); Urine Protein Negative (Neg-Trace)
== END 2024-08-01 10:52 | disposition home or self-care (01) ==
LOC: HO.LNP 10:51
PROVIDERS: Visit Provider Internal Medicine
DX: Z00.00 Encounter for general adult medical examination without abnormal findings (principal); I10 Essential (primary) hypertension; D72.829 Elevated white blood cell count, unspecified
CPT/HCPCS: 81003

== ENCOUNTER 2025-01-30 08:37 | Outpatient (REF) | payer MEDICARE, SELFPAY ==
--- OUTSIDE RECORDS SUMMARY | 2025-01-30 03:15 | XMS_ITS ---
Author Organization Daniel Joiner MD Address [address] [place] [address] [phone] Care Team Providers Care Pelt Dropper Name Role Phone Daniel Joiner Primary Care Provider REASON FOR VISIT FASTING LIPIDS Encounters Encounter Location Date Provider Diagnosis Daniel Joiner MD [address] [place] [address] [place] [phone] 01/30/2025 Daniel Joiner Hypercholesterolemia E78.00 Assessments Encounter Date Diagnosis (ICD Code) Assessment Notes Treatment Notes Treatment Clinical Notes Section Notes 01/30/2025 Hypercholesterolemia (ICD-10 - E78.00) Plan Of Treatment Pending Test Test Name Order Date Lipid Panel with Reflex 01/30/2025 Next Appt Details Provider Name:Daniel chandler, 02/04/2025 09:00:00 AM, [address] [place] [address], [address], [phone], Provider Name:Daniel chandler, 07/29/2025 07:45:00 AM, [address] [place] [address], [address], [phone], Provider Name:Daniel chandler, 08/04/2025 10:30:00 AM, [address] [place] [address], [address], [phone], Progress Notes * Aretha KHAN LDOB:1949 (74 yo F)Acc No.[id number]:01/30/2025 Progress Note Patient: Aretha KOEHLER Provider: Hilda Joiner MD :1950 A ge:74 Y S ex:Female Date:01/30/2025 Address:[address] [place] [address] [address], [id number] Subjective: * Chief Complaints: * 1 . [...] Pending * Provider: Hilda Joiner MD Date: 01/30/2025 Generated for Nisreen lockwood/Jonathon/Flashitting on: 01/30/2025 09:00 AM EDT
[2025-01-30 11:51] LABS: Cholesterol 237 mg/dL (<200); HDL Cholesterol 49 mg/dL (>40); Triglycerides 122 mg/dL (<150)
== END 2025-01-30 08:38 | disposition home or self-care (01) ==
LOC: HO.WFDLDS 08:37
PROVIDERS: Visit Provider Internal Medicine
DX: E78.00 Pure hypercholesterolemia, unspecified (principal)
CPT/HCPCS: 36415; 80061

== ENCOUNTER 2025-05-09 09:59 | Outpatient (REF) | payer MEDICARE, SELFPAY ==
--- OUTSIDE RECORDS SUMMARY | 2023-10-23 11:02 | XMS_ITS | Encounter Summary ---
Author Organization [facility] Address [address] [place] [address] Phone Care Team Providers Care Psychological Tests Sales Agent Name Role Phone Daniel Joiner MD Primary Care Provider Encounter Details Date Type Department Care Team (Late st Contact Info) Description 10/23/2023 11:02 AM EDT Hospital Encounter [facility] [address] [place] [id number] Ever Flannery PA-C [address] [place] [phone] Social History Tobacco Use Types Packs/Day Years Used Date Smoking Tobacco: Never Smokeless Tobacco: Never Alcohol Use Standard Drinks/Week Comments Not Currently 0 (1 standard drink = 0.6 oz pur e alcohol) Education Answer Date Recorded Are you interested in more education? Not on shannon e 11/05/2022 Are you concerned about learning? Not on file 11/05/2022 No 11/05/2022 No 11/05/2022 Digital Access Answer Date Recorded No 12/04/2022 No 12/04/2022 Reliable internet access at home? Not on file 12/04/2022 Device with a working camera? Not on file Comments Unknown Sex and Gender Information Value Date Recorded Sex Assigned at Not on file Legal Sex Female 8:01 AM EDT Gender Identity Not on file Sexual Orientation Not on file documented as of this encounter Plan of Treatment Not on file documented as of this encounter Procedures Procedure Name Priority Date/Time Associated Diagnosis Comments XR CHEST PA AND LATERAL 2 VIEWS Urgent/patient waiting 10/23/2023 11:06 AM EDT Bronchitis documented in this encounter Results * XR CHEST PA AND LATERAL 2 VIEWS (10/23/2023 11:06 AM EDT) Anatomical Region Laterality Modality Chest Computed Radiogr aphy 10/23/2023 11:4 1 AM EDT Impressions 10/23/2023 11:42 AM EDT No acute findings. Narrative 10/23/2023 11:42 AM EDT XR CHEST PA AND LATERAL 2 VIEWS COMPARISON: None FINDINGS: Lungs: Clear lungs. Pleura: No pleural effusion. No pneumothorax Heart/Mediastinum: Heart size normal. Atherosclerotic calcifications in aorta. Bones/Soft Tissues: No acute finding Procedure Note Santos Hussein MD, EB - 10/23/2023 XR CHEST PA AND LATERAL 2 VIEWS COMPARISON: None FINDINGS: Lungs: Clear lungs. Pleura: No pleural effusion. No pneumothorax Heart/Mediastinum: Heart size normal. Atherosclerotic calcifications inaorta. Bones/Soft Tissues: No acute finding IMPRESSION: No acute findings. Ever Flannery PA-C IMG XR CHEST Final Result documented in this encounter Visit Diagnoses Not on filedocumented in this encounter Additional Health Concerns Infection Onset Date Last Indicated Resolved Time CoV-Risk 10/23/2023 10/23/2023 11/03/2023 1:22 AM EDT documented as of this encounter Care Teams Psychological Tests Sales Agent Relationship Specialty Start Date End Date Daniel Joiner MD [address] [place] [address] [place] [id number] PCP - General Internal Medicine 02/12/21 documented as of this encounter Additional Source Comments The information contained in this document represents components of the legal health record. It is not the complete legal health record.[facility]
--- OUTSIDE RECORDS SUMMARY | 2024-08-12 06:44 | XMS_ITS ---
Author Organization Daniel Joiner MD Address [address] [place] [phone] Care Team Providers Care Senior Budget Analyst Name Role Phone Daniel Joiner Primary Care Provider REASON FOR VISIT REFILLS Medications Medication SIG (Take, Route, Frequency, Duration) Notes Start Date End Date Status Lisinopril-hydroCHLOROthia zide 10-12.5 MG TAKE 1 TABLET BY MOUTH EVERY DAY FOR 30 DAYS Orally Once a day for 90 days Active Zolpidem Tartrate 5 MG 1 tablet at bedti va as needed Orally Once a day for 10 days 08/12/2024 Active Encounters Encounter Location Date Provider Diagnosis Daniel Joiner MD [address] [place] [phone] 08/12/2024 Daniel Joiner Dysthymia F34.1 and Benign essential hypertension I10 Assessments Encounter Date Diagnosis (ICD Code) Assessment Notes Treatment Notes Treatment Clinical Notes Section Notes 08/12/2024 Dysthymia (ICD-10 - F34.1) 08/12/2024 Benign essential hypertension (ICD-10 - I10) Plan Of Treatment Medication Medication Name Sig Start Date Stop Date Notes Lisinopril-hydroCHLOROthiazi de 10-12.5 MG TAKE 1 TABLET BY MOUTH EVERY DAY FOR 30 DAYS Orally Once a day for 90 days Zolpidem Tartrate 5 MG 1 tablet at bedti me as needed Orally Once a day for 10 days 08/12/2024 Next Appt Details Provider Name:Daniel Ryan ier, 05/15/2025 10:45:00 AM, [address], [address], [place], [place], [phone], Provider Name:Daniel Ryan ier, 07/29/2025 07:45:00 AM, [address] [place] [address], Suite [facility], [place], [place], [phone], Provider Name:Daniel Ryan ier, 08/04/2025 10:30:00 AM, [address] [place] [address], Suite [facility], [place], [place], [phone], Progress Notes * Aretha KHAN LDOB:1949 (74 yo F)Acc No.[id number]:08/12/2024 Patient: Chip Aretha SANTIAGO :1950 A ge:74 Y S ex:Female Address:[address] [place] [address] [address], [place] [address] * Refills Refill Zolpidem Tartrate Tablet, 5 MG, Orally, 10 Tablet, 1 tablet at bedtime as needed, Once a day, 10 days, Refills=0 Refill Lisinopril-hydroCHLOROthiazide Tablet, 10-12.5 MG, Orally, 90, TAKE 1 TABLET BY MOUTH EVERY DAY FOR 30 DAYS, Once a day, 90 days, Refills=3 * true * Date: Generated for Nisreen lockwood/Jonathon/Smileysmitting on: 11:14 AM EDT
--- OUTSIDE RECORDS SUMMARY | 2024-10-18 03:36 | XMS_ITS ---
Author Organization Daniel Joiner MD Address [address] [place] [address] [phone] Care Team Providers Care Continuous Miner Name Role Phone Daniel Joiner Primary Care Provider [phone] REASON FOR VISIT New Refill Request Encounters Encounter Location Date Provider Diagnosis Daniel Joiner MD 10 [facility] [address] [place] [address] [phone] 10/18/2024 Daniel Joiner Plan Of Treatment Next Appt Details Provider Name:Daniel chandler, 05/15/2025 10:45:00 AM, [address] [place] [address], [address], [phone], Provider Name:Daniel chandler, 07/29/2025 07:45:00 AM, [address] [place] [address], [address], [phone], Provider Name:Daniel chandler, 08/04/2025 10:30:00 AM, [address] [place] [address], [address], [phone], Progress Notes * Aretha KHAN LDOB:1949 (74 yo F)Acc No.[id number]:10/18/2024 Patient: Aretha KOEHLER :1950 A ge:74 Y S ex:Female Address:[address] [place] [address] [address], [place] [address] * true * Date: Generated for Nisreen lockwood/Jonathon/Miladyransmitting on: 11:13 AM EDT
--- OUTSIDE RECORDS SUMMARY | 2024-10-18 03:36 | XMS_ITS ---
Author Organization Daniel Joiner MD Address [address] [place] [address] [phone] Care Team Providers Care Lathe Tender Name Role Phone Daniel Joiner Primary Care Provider REASON FOR VISIT New Refill Request Encounters Encounter Location Date Provider Diagnosis Daniel Joiner MD 10 [facility] [address] [place] [address] [phone] 10/18/2024 Daniel Joiner Plan Of Treatment Next Appt Details Provider Name:Daniel chandler, 05/15/2025 10:45:00 AM, [address] [place] [address], [address], [phone], Provider Name:Daniel chandler, 07/29/2025 07:45:00 AM, [address] [place] [address], [address], [phone], Provider Name:Daniel chandler, 08/04/2025 10:30:00 AM, [address] [place] [address], [address], [phone], Progress Notes * Aretha KHAN LDOB:1949 (74 yo F)Acc No.[id number]:10/18/2024 Patient: Aretha KOEHLER :1950 A ge:74 Y S ex:Female Address:[address] [place] [address] [address], [place] [address] * true * Date: Generated for Nisreen lockwood/Jonathon/Miladyransmitting on: 11:13 AM EDT
--- OUTSIDE RECORDS SUMMARY | 2025-01-28 17:12 | XMS_ITS ---
Author Organization Daniel Joiner MD Address [address] [place] [address] [phone] Care Team Providers Care Steward/Stewardess Economy Class Name Role Phone Daniel Joiner Primary Care Provider [phone] REASON FOR VISIT New Refill Request Medications Medication SIG (Take, Route, Fr equency, Duration) Notes Start Date End Date Status Zolpidem Tartrate 5 MG 1 tablet at bedti me as needed Orally Once a day for 10 days 01/30/2025 Ac tive Encounters Encounter Location Date Provider Diagnosis Daniel Joiner MD [address] [place] [address] [phone] 01/28/2025 Daniel Joiner Dysthymia F34.1 Assessments Encounter Date Diagnosis (ICD Code) Assessment Notes Treatment Notes Treatment Clinical Notes Section Notes 01/28/2025 Dysthymia (ICD-10 - F34.1) Plan Of Treatment Medication Medication Name Sig Start Date Stop Date Notes Zolpidem Tartrate 5 MG 1 tablet at bedti me as needed Orally Once a day for 10 days 01/30/2025 Next Appt Details Provider Name:Daniel chandler, 05/15/2025 10:45:00 AM, 10 [facility], Suite [facility], [place], [place], [phone], Provider Name:Daniel chandler, 07/29/2025 07:45:00 AM, [address], [place], [place], [phone], Provider Name:Daniel Ryan ramesh, 08/04/2025 10:30:00 AM, [address], [address], [place], [place], [phone], Progress Notes * Aretha KHAN LDOB:1949 (74 yo F)Acc No.[id number]:01/28/2025 Patient: Chip Aretha SANTIAGO :1950 A ge:74 Y S ex:Female Address:[address] [place] [address] [address], [place] [address] * Refills Refill Zolpidem Tartrate Tablet, 5 MG, Orally, 10 Tablet, 1 tablet at bedtime as needed, Once a day, 10 days, Refills=0 * true * Date: Generated for Nisreen lockwood/Jonathon/Smileysmitting on: 1 11:13 AM EDT
--- OUTSIDE RECORDS SUMMARY | 2025-01-28 17:12 | XMS_ITS ---
Author Organization Daniel Joiner MD Address [address] [place] [phone] Care Team Providers Care Court Usher Name Role Phone Daniel Joiner Primary Care Provider [phone] REASON FOR VISIT New Refill Request Encounters Encounter Location Date Provider Diagnosis Daniel Joiner MD 10 [facility] [address] [place] [address] [phone] 01/28/2025 Daniel Joiner Plan Of Treatment Next Appt Details Provider Name:Daniel chandler, 05/15/2025 10:45:00 AM, [address] [place] [address], [address], [phone], Provider Name:Daniel chandler, 07/29/2025 07:45:00 AM, [address] [place] [address], [address], [phone], Provider Name:Daniel chandler, 08/04/2025 10:30:00 AM, [address] [place] [address], [address], [phone], Progress Notes * Aretha KHAN LDOB:1949 (74 yo F)Acc No.[id number]:01/28/2025 Patient: Aretha KOEHLER :1950 A ge:74 Y S ex:Female Address:[address] [place] [address] [address], [place] [address] * true * Date: Generated for Nisreen lockwood/Jonathon/Miladyransmitting on: 11:14 AM EDT
--- OUTSIDE RECORDS SUMMARY | 2025-01-30 03:15 | XMS_ITS ---
Author Organization Daniel Joiner MD Address [address] [place] [phone] Care Team Providers Care Bi Specialist Name Role Phone Daniel Joiner Primary Care Provider [phone] REASON FOR VISIT FASTING LIPIDS Encounters Encounter Location Date Provider Diagnosis Daniel Joiner MD 10 [facility] [address] [place] [phone] 01/30/2025 Daniel Joiner Hypercholesterolemia E78.00 Assessments Encounter Date Diagnosis (ICD Code) Assessment Notes Treatment Notes Treatment Clinical Notes Section Notes 01/30/2025 Hypercholesterolemia (ICD-10 - E78.00) Plan Of Treatment Pending Test Test Name Order Date Lipid Panel with Reflex 01/30/2025 Next Appt Details Provider Name:Daniel Ryan ierhett, 05/15/2025 10:45:00 AM, [address] [place] [address], [address], [phone], Provider Name:Daniel chandler, 07/29/2025 07:45:00 AM, [address] [place] [address], [address], [phone], Provider Name:Daniel chandelr, 08/04/2025 10:30:00 AM, [address] [place] [address], [address], [phone], Progress Notes * Aretha KHAN LDOB:1949 (75 yo F)Acc No.[id number]:01/30/2025 Progress Note Patient: Aretha KOEHLER Provider: Hilda Joiner MD :1950 A ge:74 Y S ex:Female Date:01/30/2025 Address:[address] [place] [address] [address], [id number] Subjective: * Chief Complaints: * 1 . [...] 01/30/2025 Generated for Nisreen lockwood/Jonathon/Flashitting on: 1 11:12 AM EDT
--- OUTSIDE RECORDS SUMMARY | 2025-02-04 05:00 | XMS_ITS ---
Author Organization Daniel Joiner MD Address [address] [place], [place] [id number] Care Team Providers Care Photographic Press Screwmaker Name Role Phone Daniel Joiner Primary Care Provider Allergies No Known Allergies REASON FOR VISIT [...] Status W/U Status Risk Notes Problem Neuropathy (021095813) Neuropathy (G62.9) Active confirmed Vital Signs Blood pressure systolic 132 mm Hg 02/05/20 25 Blood pressure diastolic 60 mm Hg 025 Height 62.25 in 02/04/2025 Weight 214 lbs 02/04/2025 BMI 38.82 kg/m2 02/04/2025 weight is up 11 pounds since 08-01-24 Encounters Encounter Location Date Provider Diagnosis Daniel Joiner MD [address] [place] [address] [place] [phone] 02/04/2025 Daniel Joiner Hypercholesterolemia E78.00 and Neuropathy [...] to check shoes before putting them on Future Test Test Name Order Date Liver Panel 05/07/2025 Lipid Panel 05/07/2025 Next Appt Details Follow Up: 3 Months, Reason: Provider Name:Daniel Santosdale ier, 05/15/2025 10:45:00 AM, [address] [place] [address], Suite [facility], [place], [place], [phone], Provider Name:Daniel Santosdale ier, 07/29/2025 07:45:00 AM, [address] [place] [address], Suite [facility], [place], [place], [phone], Provider Name:Daniel Ryan ier, 08/04/2025 10:30:00 AM, [address] [place] [address], Suite [facility], [place], [place], [phone], Progress Notes * Aretha KHAN LDOB:1949 (74 yo F)Acc No.[id number]:02/04/2025 Progress Notes Patient: Aretha KOEHLER Provider: Hilda Joiner MD :1950 A ge:74 Y S ex:Female Date:02/04/2025 Address:[address] [place] [address] [address], [facility] Subjective: * Chief Complaints: * 6 MONTH [...] MD Date: 0 02/04/2025 Generated for Nisreen lockwood/Jonathon/Flashitting on: 1 11:13 AM EDT History and Physical Notes * HPI (History [...]
--- OUTSIDE RECORDS SUMMARY | 2025-03-06 05:05 | XMS_ITS ---
Author Organization Daniel Joinre MD Address [address] [place] [phone] Care Team Providers Care Hospitalist Physician Name Role Phone Daniel Joiner Primary Care Provider REASON FOR VISIT RF Atorvastatin Medications Medication SIG (Take, Route, Frequency, Duration) Notes Start Date End Date Status Atorvastatin Calcium 20 MG 1 tablet Oral ly Once a day for 90 days 02/04/2025 Active Encounters Encounter Location Date Provider Diagnosis Daniel Joiner MD [facility] [address] [place] [phone] 2025 Daniel Joiner Hypercholesterolemia E78.00 Assessments Encounter Date Diagnosis (ICD Code) Assessment Notes Treatment Notes Treatment Clinical Notes Section Notes 2025 Hypercholesterolemia (ICD-10 - E78.00) Plan Of Treatment Medication Medication Name Sig Start Date Stop Date Notes Atorvastatin Calcium 20 MG 1 tablet Oral ly Once a day for 90 days 02/04/2025 Next Appt Details Provider Name:Daniel chandler, 05/15/2025 10:45:00 AM, [address] [place] [address], [address], [phone], Provider Name:Daniel chandler, 07/29/2025 07:45:00 AM, [address] [place] [address], [address], [phone], Provider Name:Daniel Ryan ier, 08/04/2025 10:30:00 AM, [address], [address], [place], [phone], Progress Notes * Aretha KHAN LDOB:1949 (75 yo F)Acc No.[id number]:2025 Patient: Aretha KOEHLER :1950 A ge:75 Y S ex:Female Address:[address] [place] [address] [address], [place] [address] * Refills Refill Atorvastatin Calcium Tablet, 20 MG, Orally, 90 Tablet, 1 tablet, Once a day, 90 days, Refills=3 * true * Date: Generated for Nisreen lockwood/Jonathon/Flashitting on: 1 11:13 AM EDT
--- OUTSIDE RECORDS SUMMARY | 2025-03-11 05:29 | XMS_ITS ---
Author Organization Daniel Joiner MD Address [address] [place] [phone] Care Team Providers Care Storage Garage Manager Name Role Phone Daniel Joiner Primary Care Provider REASON FOR VISIT refill Medications Medication SIG (Take, Route, Frequency, Duration) Notes Start Date End Date Status Atorvastatin Calcium 20 MG 1 tablet Oral ly Once a day for 90 days 02/04/2025 Active Encounters Encounter Location Date Provider Diagnosis Daniel Joiner MD 10 [facility] [address] [place] [phone] 03/11/2025 Daniel Joiner Hypercholesterolemia E78.00 Assessments Encounter Date Diagnosis (ICD Code) Assessment Notes Treatment Notes Treatment Clinical Notes Section Notes 03/11/2025 Hypercholesterolemia (ICD-10 - E78.00) Plan Of Treatment Medication Medication Name Sig Start Date Stop Date Notes Atorvastatin Calcium 20 MG 1 tablet Oral ly Once a day for 90 days 02/04/2025 Next Appt Details Provider Name:Daniel chandler, 05/15/2025 10:45:00 AM, [address] [place] [address], [address], [phone], Provider Name:Daniel chandler, 07/29/2025 07:45:00 AM, [address] [place] [address], [address], [phone], Provider Name:Daniel Ryan ier, 08/04/2025 10:30:00 AM, [address], [address], [place], [phone], Progress Notes * Aretha KHAN LDOB:1949 (75 yo F)Acc No.[id number]:03/11/2025 Patient: Aretha KOEHLER :1950 A ge:75 Y S ex:Female Address:[address] [place] [address] [address], [place] [address] * Refills Refill Atorvastatin Calcium Tablet, 20 MG, Orally, 90, 1 tablet, Once a day, 90 days, Refills=3 * true * Date: Generated for Nisreen lockwood/Jonathon/Flashitting on: 1 11:14 AM EDT
--- OUTSIDE RECORDS SUMMARY | 2025-05-08 05:00 | XMS_ITS ---
Author Organization Daniel Joiner MD Address [address] [place] [phone] Care Team Providers Care Lens Cutter Name Role Phone Daniel Joiner Primary Care Provider REASON FOR VISIT fasting lipids liver Encounters Encounter Location Date Provider Diagnosis Daniel Joiner MD [facility] [address] [place] [phone] 05/08/2025 Daniel Joiner Plan Of Treatment Next Appt Details Provider Name:Daniel chandler, 05/15/2025 10:45:00 AM, [address] [place] [address], [address], [phone], Provider Name:Daniel chandler, 07/29/2025 07:45:00 AM, [address] [place] [address], [address], [phone], Provider Name:Daniel chandler, 08/04/2025 10:30:00 AM, [address] [place] [address], [address], [phone], Progress Notes * Aretha KHAN LDOB:1949 (75 yo F)Acc No.[id number]:05/08/2025 Progress Note Patient: Aretha KOEHLER Provider: Hilda Joiner MD :1950 A ge:75 Y S ex:Female Date:05/08/2025 Address:[address] [place] [address] [address], [facility] Subjective: * Chief Complaints: * 1 . Fasting lipids liver. * Medical History: Objective: * Vitals: Assessment: Plan: * Treatment: * * The named appointment provid er may or may not be the originator of this progress note, and it is not deemed complete until electronically signed by the appointment provider. Sign off status: Pending * Provider: Hilda Joiner MD Date: Generated for Nisreen lockwood/Jonathon/Flashitting on: 11:13 AM EDT
--- OUTSIDE RECORDS SUMMARY | 2025-05-09 11:13 | XMS_ITS | Clinical Summary ---
Author Organization [facility] Address [address] [address] Phone Care Team Providers Care Mechanical Product Design Engineer Name Role Phone Daniel Joiner MD Primary Care Provider Allergies No known active allergies Medications naproxen sodium (ALEVE) 220 mg Cap Aleve prn Active folic acid/multivit-m in/lutein (CENTRUM SILVER ORAL) Centrum Silver Activ e citalopram (CELEXA) 20 MG tablet citalopram 20 mg tablet TAKE 1 TABLET BY MOUTH EVERY DAY Active fluorouraciL (EFUDEX) 5 % cream APPLY 0.5/HALF GM ON THE SKIN NIGHTLY APPLY NIGHTLY AND WASH IN AM 1 Active fluticasone propion-salmete roL (ADVAIR DISKUS) 500-50 mcg/dose DISKUS Wixela Inhub 500 mcg-50 mcg/dose powder for inhalation Active latanoprost (XALATAN) 0.005 % ophthalmic solution latanoprost 0.005 % eye drops Active montelukast (SINGULAIR) 10 mg tablet 1 Active SPIRIVA RESPIMAT 2.5 mcg/actuation mist for inhalation 1 Active triamcinolone acetonide 0.1 % cream 1 Active zolpidem (AMBIEN) 5 MG tablet Take 5 mg by mouth nightly at bedtime as needed. 1 Active albuterol 2.5 mg /3 mL (0.083 %) nebulizer solution Inhale into the lungs. 3 Active TRELEGY ELLIPTA 200-62.5-25 mcg inhaler 4 Active lisinopril-hydr oCHLOROthiazide (PRINZIDE,ZESTO RETIC) 10-12.5 mg per tablet take 1 tablet by mouth every day for 30 days Active albuterol 90 mcg/actuation inhaler Inhale 2 puffs into the lungs every 6 (six) hours as needed for wheezing. Active Active Problems No known active problems Immunizations Immunization Administration Dates Next Due COVID-19 (Pre-05/01) Moderna Vaccine, mRNA, PF 04/20/2023 Influenza High-Dose Quadriva lent Preservative Free IM 03/24/2022 Influenza High-Dose Trivalen t Preservative Free IM 03/22/2021,03/27/2019,04/13/2017,2015 Influenza Quadrivalent Adjuv anted Preservative Free IM 04/29/2023 Influenza Trivalent Adjuvant ed Preservative free IM 02/28/2020,03/27/2019,03/23/2018 RSV Vaccine (monovalent, adjuvanted) 05/22/2023 Social History Tobacco Use Types Packs/Day Years Used Date Smoking Tobacco: Never Smokeless Tobacco: Never Tobacco Cessation:Counseling Given: Not Answered Alcohol Use Standard Drinks/Week Comments Not Currently [...] on file Sexual Orientation Not on file Last Filed Vital Signs Vital Sign Reading Time Taken Comments Blood Pressure 116/75 10/23/2023 10:21 AM EDT Pulse 90 10/23/2023 10:21 AM EDT Temperature 37 C (98.6 F) 10/23/2023 10:21 AM EDT Respiratory Rate 20 10/23/2023 10:21 AM EDT Oxygen Saturation 96% 10/23/2023 10:21 AM EDT Inhaled Oxygen Concentration - - Weight 93.4 kg (206 lb) 10/23/2023 10:21 AM EDT per pt Height 167.6 cm (5' 6 ) 02/12/2021 8:25 AM EDT Body Mass Index 33.25 02/12/2021 8:25 AM EDT Plan of Treatment Health Maintenance Due Date Last Done Comments Adult Td,Tdap Booster 1950 CREATININE LEVEL 1950 LIPID PANEL 1950 POTASSIUM LEVEL 1950 DEPRESSION SCREENING 1963 HEPATITIS C SCREENING 1969 MAMMOGRAM 1991 COLOGUARD 1996 COLONOSCOPY 1996 COLORECTAL CANCER SCREENING 1996 FIT TEST 1996 FOBT 1996 SIGMOIDOSCOPY 1996 VIRTUAL COLONOSCOPY 1996 PNEUMOCOCCAL VACCINES (50+ years) (1 of 1 - PCV) 2001 ZOSTER VACCINES (1 of 2) 2001 OSTEOPOROSIS SCREENING INITIAL (ONE-TIME) 2016 INFLUENZA VACCINE (#1) 2025 , 03/24/2022, 03/22/2021, Additional history exists COVID-19 VACCINE (2024- season) 2025 04/20/2023, 04/20/2023, 04/08/2022, Additional history exists RSV VACCINE Completed 05/22/2023 SMOKING STATUS SCREENING (Once After 26 Yrs) Completed 10/23/2023 HEPATITIS A VACCINES Aged Out No long er eligible based on patient's age to complete this topic HIB VACCINES Aged Out No longer eligi ble based on patient's age to complete this topic MENINGOCOCCAL VACCINES (ACWY) Aged Out No longer eligible based on patient's age to complete this topic MENINGOCOCCAL VACCINES (B) Aged Out N o longer eligible based on patient's age to complete this topic Medical Devices Not on file Insurance [employer] RE[employer]AC[employer] MEDICARE HMO REPLACEMENT [employer] [employer] MEDICARE HMO REPLACEMENT [employer] [place] [employer] [place] [employer] [place] [employer] [place] [employer] H[employer] Care Teams Mechanical Product Design Engineer Relationship Specialty Start Date End Date Daniel Joiner MD [address] [place] [address] Dr RUIZ [address] [place] [address] [place] [address] PCP - General Internal Medicine 02/12/21 Additional Source Comments The information contained in this document represents components of the legal health record. It is not the complete legal health record.[facility]
--- OUTSIDE RECORDS SUMMARY | 2025-05-09 11:15 | XMS_ITS | Patient Health Record ---
Author Organization Daniel Joiner MD Address [address] [place], [place] [id number] Care Team Providers Care Manager Field Investigations Name Role Phone Daniel Joiner Primary Care Provider [phone] Allergies No Known Allergies Results Component Value Reference Range Notes MM tomosynthesis screening B I Reviewed date:05/18/2024 05:33:58 PM Interpretation: Performing Lab: Notes/Report: [address] [place] [id number] Mammography Report Signed Patient: Aretha Khan MR#: [id number] : 1950 Acct:[id number] Age/Sex: 74 / F ADM Date: 05/10/24 Loc: HO.MAMMO Attending Dr: Daniel Joiner MD Ordering Physician: Daniel Joiner MD Results: 1Ne gative Date of Service: 05/10/24 Follow Up: 1 Year From Orig ina Mammogram Procedure(s): MM tomosynthesis screening BI Accession Number(s): [id number] cc: Daniel Joiner MD EXAMINATION: MM SCREENING DIGITAL BREAST TOMOSYNTHESIS, BILATERAL CLINICAL INFORMATION: Screening. Asymptomatic. COMPARISON: Mammography: Comparison is made with available priors TECHNIQUE: Digital breast mammography with tomosynthesis is performed in both the craniocaudal and mediolateral oblique views along with computer-aided detection (CAD). FINDINGS: There are scattered areas of fibroglandular density (ACR BI-RADS breast composition Category b). There are no significant masses, abnormal calcifications, or other abnormalities. MM/MM tomosynthesis screening BI IMPRESSION: No mammographic evidence of malignancy. ASSESSMENT: BI-RADS BI-RADS 1 - Negative RECOMMENDATION: Routine annual mammography screening. 1 year F/U This examination should not preclude the clinical evaluation of a suspicious palpable abnormality. This patient's information was entered into a reminder system with a target due date for their next mammogram. Electronically signed by: Alyssa Dupont DO 05/17/2024 04:23 PM [facility] Dictated By: Alyssa Dupont DO Signed By: <Electronically signed by Alyssa Dupont DO in OV> 05/17/24 1623 DD/ TD/TT: 05/10/24 0935 Manager Process Improvement: [facility] [address] [place] [address] Mammography Report Signed Patient: Maurice Khan MR#: [id number] : 1950 Acct:[id number] Age/Sex: 74 / F ADM Date: 05/10/24 Loc: HO.MAMMO Attending Dr: Daniel Joiner MD Ordering Physician: Daniel Joiner MD Results: 1Ne gative Date of Service: 05/10/24 Follow Up: 1 Year From [facility] ina Mammogram Procedure(s): MM tomosynthesis screening BI Accession Number(s): [id number] cc: Daniel Joiner MD EXAMINATION: MM SCREENING DIGITAL BREAST TOMOSYNTHESIS, BILATERAL CLINICAL INFORMATION: Screening. Asymptomatic. COMPARISON: Mammography: Compari son is made with available priors TECHNIQUE: Digital breast mammography with tomosynthesis is performed in both the craniocaudal and mediolateral oblique views along with computer-aided detection (CAD). FINDINGS: There are scattered areas of fibroglandular density (ACR BI-RADS breast composition Category b). There are no signifi cant masses, abnormal calcifications, or other abnormalities. M M/MM tomosynthesis screening BI IMPRESSION: No mammographic evid ence of malignancy. ASSESSMENT: BI-RADS BI-RADS 1 - Negative RECOMMENDATION: Routine annual mammography screening. 1 year F/U This examination padmini uld not preclude the clinical evaluation of a suspicious palpable abnormality. This patient's information was entered into a reminder system with a target due date for their next mammogram. Electronically charlie d by: Alyssa Dupont DO 05/17/2024 04:23 PM [facility] Dictated By: Alyssa Dupont DO Signed By: <Electronically signed by Alyssa Dupont DO in OV> 05/17/24 1623 DD/ 4 TD/TT: 05/10/24934 Manager Process Improvement: CARLOS busby[employer] [employer] Reviewed date:08/04/2024 05:00:28 PM Interpretation: Performing Lab:[facility], [address] [place] [id number] Notes/Report: [id number] Urine, Clean Catch Color Urine Yellow Appearance Urine Clear PH 5.5 5.0-9.0 Glucose Urine UA Negative Negative mg/dL Urine Blood Negative Negative Specific [place] - Urine 1.020 1.005-1.025 Urine Protein Negative Neg-Trace mg/dL Urine Ketones Negative Negative mg/dL Nitrite Urine Negative Negative Leukocyte Esterase Urine Negative Negative Lipid Panel Reviewed date:01/30/2025 12:31:07 PM Interpretation: Performing Lab:[facility], [address] [place] [id number] Notes/Report: Triglycerides 122 <150 mg/dL Desirable Triglyceride: less than 150 mg/dL Borderline High Triglyceride 150-199 mg/dL High Triglyceride: 200-499 mg/dL Very High Triglyceride: greater than or equal to 5OO mg/dL Cholesterol 237 <200 mg/dL Desirable Cholesterol: less than 200 mg/dL Borderline High Cholesterol: 200-239 mg/dL High Cholesterol: greater than 239 mg/dL LDL Cholesterol Calculated 164 <100 mg/dL Desirable LDL: less than 100 mg/dL Near Optimal/Above Optimal LDL: 110-129 mg/dL Borderline High LDL: 130-159 mg/dL High LDL: 160-189 mg/dL Very High LDL: greater than or equal to 190 mg/dL HDL Cholesterol 49 >40 mg/dL Desirable HDL: greater than 40 mg/dL Note: This HDL assay may give artificially low results in patients with liver disease. Reason For Referral No Information Medications Medication SIG (Take, Route, Frequency, Duration) Notes Start Date End Date Status Lisinopril-hydroCHLOROthi azide 10-12.5 MG TAKE ONE-HALF TABLET BY MOUTH DAILY ONCE DAILY for 90 Active Vitamin D3 1000 UNIT 1 capsule Orally On ce a day Active ProAir HFA 108 (90 Base) MCG/ACT 2 puffs as needed Inhalation every 6 hrs for 30 days 03/01/2019 Not-Taking Flonase 50 MCG/ACT 1 spray in each nost ril Nasally Once a day 10/11/2012 Not-Taking Amoxicillin 500 MG 1 tablet Orally Thre e times a day for 10 days 08/08/2014 Not-Takzayra lockwood Atorvastatin Calcium 20 MG 1 tablet Orally Once a day for 90 days 02/04/2025 Active Tezspire 210 MG/1.91ML as directed Subcutaneous Active Zolpidem Tartrate 5 MG 1 tablet at bedti me as needed Orally Once a day for 10 days 01/30/2025 Active Aspir-Low 81 MG 1 tablet Orally Once a day for 30 day(s) Active Aleve 220 MG 1 tablet with food o r milk as needed Orally every 12 hrs Not-Taking Corazon Allergy 60 MG 1 tablet Orally Tw ice a day for 30 day(s) Active LORazepam 1 MG 1 tablet as needed Orally Twice a day ax needed for 2 days 01/13/2022 Not-Taking Centrum Silver as directed Orally Active Albuterol Sulfate (2.5 MG/3ML) 0.083% 3 ml as needed Inhalation every 6 hrs Not-[place] dorado Triamcinolone Acetonide 0.1 % APPLY 1 APPLICATION TO AFFECTED AREA EXTERNALLY TWICE A DAY FOR 30 DAYS for 30 Active Trelegy Ellipta 100-62.5-25 MCG/INH 1 puff Inhalation Once a day Active Citalopram Hydrobromide 20 MG TAKE 1 TABLET BY MOUTH ONCE DAILY Active Latanoprost 0.005 % 1 drop into affected eye in the evening Ophthalmic Once a day Active Omeprazole 20 MG 1 capsule 30 minutes before morning meal Orally Once a day for 30 day(s) Active Immunizations Vaccine Route Administration Date Status Comme nts DECLINED, FLU Unknown 05/03/2013 Administered Flu Vaccine IM Intramuscular 03/29/2016 Administered [facility] Flu Vaccine IM Intramuscular 04/13/2017 Administered pt wa s given the high dose at [facility]. Flu Vaccine IM Intramuscular 03/23/2018 Administered pt wa s given flu vaccine for over 65 at the [facility]. Influenza High Dose IM Intramuscular 03/27/2019 Administered pt was given th e vaccine at [facility]. Influenza High Dose NS Nasal 02/28/2020 Administered Pt was given the vaccine at [facility]. Covid Vaccine Unknown 09/08/2020 Administered Moderna SARS-COV-2 Moderna Unknown 10/06/2020 Administered Influenza High Dose IM Intramuscular 03/22/2021 Administered SARS-COV-2 Moderna Unknown 05/06/2021 Administered SARS-COV-2 Moderna Unknown 12/03/2021 Administered SARS-COV-2 Moderna Unknown 04/20/2023 Administered [facility] Flu Vaccine Unknown 03/14/2014 Refused PPSV23 (Pnemovax) Unknown 06/03/2014 Refused Flu Vaccine Unknown 04/03/2015 Refused Prevnar 13 Unknown 09/06/2018 Refused Shingrix Unknown 06/09/2020 Refused PPSV23 (Pnemovax) Unknown 12/08/2020 Refused Social History Tobacco Use: Social History Observation Description Date Details (start date - stop date) Never Smoker NA - NA Tobacco Use/Smoking Question Answer Notes Patient is a nonsmoker Additional Findings: Tobacco Non-User Cu rrent non-smoker, currently using no form of tobacco Alcohol Screen Question Answer Notes Did you have a drink containing alcohol in the p ast year? No Points 0 Interpretation Negative Problems Problem Type SNOMED Code ICD Code Onset Dates Problem Status W/U Status Risk Notes Problem 815101814 Thyroid nodule (E04.1) Active confirm ed Problem Neuropathy (098666796) Neuropathy (G62.9) Active confirmed Problem Insomnia (666714239) Insomnia (G47.00) Active confirmed Problem 68990458 Anxiety (F41.9) Active confirmed Problem Sinusitis (08638303) Sinusitis (J32.9) Active confirmed Problem 7063135 Primary insomnia (F51.01) Active confirmed Problem 846504253 Mild intermitten t asthma without complication (J45.20) Active confirmed Problem Benign essential hypertension (8860120) Benign essential hypertension (I10) Active confirmed Problem 46053537 Heart murmur (R01.1) Active confirmed Problem 53917688 Intrinsic eczema (L20.84) Active confirmed Problem 78239806 Nonrheumatic aor tic valve insufficiency (I35.1) Active confirmed Problem 844685972029990 Carpal tunnel sy ndrome of right wrist (G56.01) Active confirmed Problem 037682019 Leukocytosis, unspecified type (D72.829) Active confirmed Problem 97437500 Dysthymia (F34.1) Active confirmed Problem 664969171 History of tuberculosis (Z86.11) Active confirmed Problem 719462161 Incoordination (R27.9) Active confirm ed Problem Idiopathic peripheral neuropathy (22690792) Idiopathic peripheral neuropathy (G60.9) Active confirmed Problem 755746492 Body mass index (BMI) of 39.0-39.9 in adult (Z68.39) Active confirmed Problem 539313558 Body mass index (BMI) of 38.0-38.9 in adult (Z68.38) Active confirmed Problem 47161185 Hypercholesterol emia (E78.00) Active confirmed Problem 124851030 Imbalance (R26.89) Active confirmed Problem 022803794 Osteopenia deter mined by x-ray (M85.80) Active confirmed Problem 2052271326527950 Bilateral hip j oint arthritis (M16.0) Active confirmed Vital Signs Blood pressure diastolic 60 mm Hg 02/04/2025 marii ght is up 11 pounds since 08-01-24 Height 62.25 in 02/04/2025 weight is up 11 pounds since 08-01-24 Blood pressure systolic 132 mm Hg 02/04/2025 weig ht is up 11 pounds since 08-01-24 Weight 214 lbs 02/04/2025 weight is up 11 pounds since 08-01-24 BMI 38.82 kg/m2 02/04/2025 weight is up 11 pounds since 08-01-24 Encounters Encounter Location Date Provider Diagnosis Daniel Joiner MD [address] [place], [place] [id number] 08/01/2024 Daniel Joiner Dysthymia F34.1 ; An nual physical exam Z00.00 ; Benign essential hypertension I10 ; Polyp of colon, unspecified part of colon, unspecified type K63.5 ; Mild intermittent asthma without complication J45.20 ; Insomnia G47.00 ; Hypercholesterolemia E78.00 and Depression screening Z13.31 Daniel Jioner MD [address] [place] [id number] 02/04/2025 Danielcyrus Joiner Hypercholesterolemia E78.00 and Neuropathy G62.9 Daniel Joiner MD [address] [place] [id number] 08/12/2024 Daniel Joiner Dysthymia F34.1 and Benign essential hypertension I10 Daniel Joiner MD [address] [place] [id number] 2025 Daniel Joiner Hypercholesterolemia E78.00 Daniel Joiner MD [address] [place] [id number] 03/11/2025 Daniel Joiner Hypercholesterolemia E78.00 Daniel Joiner MD [address] [place] [id number] 10/18/2024 Daniel Joiner MD [address] [place] [id number] 10/18/2024 Daniel Joiner MD [address] [place] [id number] 01/28/2025 Daniel Joiner Dysthymia F34.1 Daniel Joiner MD [address] [place] [id number] 01/28/2025 Daniel Joiner Assessments Encounter Date Diagnosis (ICD Code) Assessment Notes Treatment Notes Treatment Clinical Notes Section Notes 08/01/2024 Dysthymia (ICD-10 - F34.1) stable, will continue current regiment 08/01/2024 Annual physical exam (ICD-10 - Z00.00) labs reviewed and discussed with patient 02/04/2025 Hypercholesterolemia (ICD-10 - E78.00) lab order given to patient, patient verbalized undrstandng of medication and directions for use. will continue to monitor, future labs pending 02/04/2025 Neuropathy (ICD-10 - G62.9) have explained the need to check shoes before putting them on 08/12/2024 Dysthymia (ICD-10 - F34.1) 2025 Hypercholesterolemia (ICD-10 - E78.00) 03/11/2025 Hypercholesterolemia (ICD-10 - E78.00) 01/28/2025 Dysthymia (ICD-10 - F34.1) 08/01/2024 Benign essential hypertension (ICD-10 - I10) stable, will continue current regiment 08/12/2024 Benign essential hypertension (ICD-10 - I10) 08/01/2024 Polyp of colon, unspecified part of colon, unspecified type (ICD-10 - K63.5) need results of biopsy from dr marrufo/ Request for records will be sent 08/01/2024 Mild intermittent asthma without complication (ICD-10 - J45.20) getting injections for asthma and is doing great, will continue current regiment 08/01/2024 Insomnia (ICD-10 - G47.00) 08/01/2024 Hypercholesterolemia (ICD-10 - E78.00) is going to get on diet, will continue to monitor 08/01/2024 Depression screening (ICD-10 - Z13.31) negative screen Plan Of Treatment Pending Test Test Name Order Date Electrocardiogram (EKG) 03/08/2019 Electrocardiogram (EKG) 10/23/2015 CARDIOVASCULAR STRESS TEST 10/23/2015 ECHO EXAM OF HEART 09/12/2014 MRI BRAIN NO CONTRAST 07/14/2022 MRI CERVICAL SPINE NO CONTRAST XR CHEST 2 VIEW PA & LAT 05/03/2013 XR CHEST 2 VIEW PA & LAT 01/08/2021 BONE DENSITY DEXA 11/23/2020 US THYROID BIOPSY FNA GUIDE 10/14/2022 ECG 30 day event monitor 07/14/2022 US thyroid 09/22/2022 Future Test Test Name Order Date Liver Panel 05/07/2025 Lipid Panel 05/07/2025 Next Appt Details Provider Name:Daniel chandler, 05/15/2025 10:45:00 AM, [address], [address], [place], [place], [id number], Provider Name:Daniel chandler, 07/29/2025 07:45:00 AM, [address] [place] [address] Drive, [address], [place], [place], [phone], Provider Name:Daniel chandler, 08/04/2025 10:30:00 AM, [address] [place] [address] Drive, [address], [place], [place], [phone], Insurance Providers Payer Name Payer Address Payer Phone Subscriber Number Group Number Insured Name Patient Relationship to Insured Coverage Start Date Coverage End Date [employer] PLAN [facility] [address] [place] [phone] [id number] Aretha Khan Self - patient is the insured [employer] [address] [place] [address] [id number] Erin Aretha Self - patient is the insured Medical (General) History Medical History History ICD Code 09/06/2013 refuses colonoscop y (will never get one)/ will get colonoscopy in december 2023 had colonoscopy 06/02 repeat in 5 years refuses echo tuberculosis as Pap Smear - 06/03/2013 (Dr. Mildred Mckenzie) Surgical History Surgery Date(Month/Year) hysterectomy, total with bilateral salpi dawson-oophorectomy (BSO) Hysterectomy 01/2006
[2025-05-09 12:07] LABS: Alanine Aminotransferase 23 U/L (0-31); Albumin Level 4.3 g/dL (3.5-5.0); Alkaline Phosphatase 111 U/L (39-117); Aspartate Amino Transferase 21 U/L (5-31); Cholesterol 159 mg/dL (<200); HDL Cholesterol 48 mg/dL (>40); Total Protein 6.9 g/dL (6.5-8.0); Triglycerides 69 mg/dL (<150)
== END 2025-05-09 10:00 | disposition home or self-care (01) ==
LOC: HO.WFDLDS 09:59
PROVIDERS: Visit Provider Internal Medicine
DX: E78.00 Pure hypercholesterolemia, unspecified (principal)
CPT/HCPCS: 36415; 80061; 80076

== ENCOUNTER 2025-06-25 11:06 | Outpatient (AMB) | payer MEDICARE, SELFPAY ==
--- OUTSIDE RECORDS SUMMARY | 2024-10-18 02:36 | XMS_ITS ---
Author Organization Daniel Joiner MD Address [address] [place] [address] [phone] Care Team Providers Care Industrial Laborer Name Role Phone Daniel Joiner Primary Care Provider REASON FOR VISIT New Refill Request Encounters Encounter Location Date Provider Diagnosis Daniel Joiner MD 10 [facility] [address] [place] [address] [phone] 10/18/2024 Daniel Joiner Plan Of Treatment Next Appt Details Provider Name:Daniel chandler, 07/29/2025 07:45:00 AM, [address] [place] [address], [address], [phone], Provider Name:Daniel chandler, 08/04/2025 10:30:00 AM, [address] [place] [address], [address], [phone], Progress Notes * Aretha KHAN LDOB:1949 (74 yo F)Acc No.[id number]:10/18/2024 Patient: Chip MIXAretha SOLIS :1950 A ge:74 Y S ex:Female Address:[address], [place] [address] * true * Date: Generated for Nisreen lockwood/Jonathon/Francisco on: 08/26/2024 02:41 PM EST
--- OUTSIDE RECORDS SUMMARY | 2024-10-18 02:36 | XMS_ITS ---
Author Organization Daniel Joiner MD Address [address] [place] [address] [phone] Care Team Providers Care Claim Clerk Name Role Phone Daniel Joiner Primary Care Provider [phone] REASON FOR VISIT New Refill Request Encounters Encounter Location Date Provider Diagnosis Daniel Joiner MD 10 [facility] [address] [place] [address] [phone] 10/18/2024 Daniel Joiner Plan Of Treatment Next Appt Details Provider Name:Daniel chandler, 07/29/2025 07:45:00 AM, [address] [place] [address], [address], [phone], Provider Name:Daniel chandler, 08/04/2025 10:30:00 AM, [address] [place] [address], [address], [phone], Progress Notes * Aretha KHAN LDOB:1949 (74 yo F)Acc No.[id number]:10/18/2024 Patient: Chip MIXAretha SOLIS :1950 A ge:74 Y S ex:Female Address:[address], [place] [address] * true * Date: Generated for Nisreen lockwood/Jonathon/Francisco on: 08/26/2024 02:41 PM EST
--- OUTSIDE RECORDS SUMMARY | 2025-01-28 16:12 | XMS_ITS ---
Author Organization Daniel Joiner MD Address [address] [place] [phone] Care Team Providers Care Clockmaker Name Role Phone Daniel Joiner Primary Care Provider REASON FOR VISIT New Refill Request Encounters Encounter Location Date Provider Diagnosis Daniel Joiner MD [address] [place] [address] [place] [address] [phone] 01/28/2025 Daniel Joiner Plan Of Treatment Next Appt Details Provider Name:Daniel chandler, 07/29/2025 07:45:00 AM, [address] [place] [address], [address], [phone], Provider Name:Daniel chandler, 08/04/2025 10:30:00 AM, [address] [place] [address], [address], [phone], Progress Notes * Aretha KHAN LDOB:1949 (74 yo F)Acc No.[id number]:01/28/2025 Patient: Chip Aretha SANTIAGO :1950 A ge:74 Y S ex:Female Address:[address], [place] [address] * true * Date: Generated for Nisreen lockwood/Jonathon/Francisco on: 08/26/2024 02:44 PM EST
--- OUTSIDE RECORDS SUMMARY | 2025-01-30 02:15 | XMS_ITS ---
Author Organization Daniel Joiner MD Address [address] [place] [phone] Care Team Providers Care Nurse Private Duty Name Role Phone Daniel Joiner Primary Care Provider REASON FOR VISIT FASTING LIPIDS Encounters Encounter Location Date Provider Diagnosis Daniel Joiner MD [address] [facility] [address] [place] [phone] 01/30/2025 Daniel Joiner Hypercholesterolemia E78.00 Assessments Encounter Date Diagnosis (ICD Code) Assessment Notes Treatment Notes Treatment Clinical Notes Section Notes 01/30/2025 Hypercholesterolemia (ICD-10 - E78.00) Plan Of Treatment Pending Test Test Name Order Date Lipid Panel with Reflex 01/30/2025 Next Appt Details Provider Name:Daniel Ryan ierhett, 07/29/2025 07:45:00 AM, [address] [place] [address], [address], [phone], Provider Name:Daniel chandler, 08/04/2025 10:30:00 AM, [address] [place] [address], [address], [phone], Progress Notes * Aretha KHAN LDOB:1949 (75 yo F)Acc No.[id number]:01/30/2025 Progress Note Patient: Aretha KOEHLER Provider: Hilda Joiner MD :1950 A ge:74 Y S ex:Female Date:01/30/2025 Address:[address] [place] [address] [address], [facility] Subjective: * Chief Complaints: * 1 . FASTING LIPIDS. * Medical History: Objective: * Vitals: Assessment: * Assessment: 1. H ypercholesterolemia - E78.00 (Primary) Plan: * Treatment: * * The named appointment provid er may or may not be the originator of this progress note, and it is not deemed complete until electronically signed by the appointment provider. Sign off status: Pending * Provider: Hilda Joiner MD Date: 0 01/30/2025 Generated for Nisreen lockwood/Jonathon/Flashitting on: 1 08/26/2024 02:41 PM EST
--- OUTSIDE RECORDS SUMMARY | 2025-02-04 04:00 | XMS_ITS ---
Author Organization Daniel Joiner MD Address [address] [place], [place] [phone] Care Team Providers Care Small Kick Press Operator Name Role Phone Daniel Joiner Primary Care Provider [phone] Allergies No Known Allergies REASON FOR VISIT 6 MONTH Medications Medication SIG (Take, Route, Frequency, Duration) Notes Start Date End Date Status LORazepam 1 MG 1 tablet as needed Orally Twice a day ax needed for 2 days 01/13/2022 Not-Taking Albuterol Sulfate (2.5 MG/3ML) 0.083% 3 ml as needed Inhalation every 6 hrs Not-[place] ProAir HFA 108 (90 Base) MCG/ACT 2 puffs as needed Inhalation every 6 hrs for 30 days 03/01/2019 Not-Taking Flonase 50 MCG/ACT 1 spray in each nost ril Nasally Once a day 10/11/2012 Not-Taking Amoxicillin 500 MG 1 tablet Orally Thre e times a day for 10 days 08/08/2014 Not-Grant ng Zolpidem Tartrate 5 MG 1 tablet at bedti me as needed Orally Once a day for 10 days 01/30/2025 Active Aleve 220 MG 1 tablet with food o r milk as needed Orally every 12 hrs Not-Taking Trelegy Ellipta 100-62.5-25 MCG/INH 1 puff Inhalation Once a day Active Citalopram Hydrobromide 20 MG TAKE 1 TABLET BY MOUTH ONCE DAILY Active Lisinopril-hydroCHLOROthi azide 10-12.5 MG TAKE 1 TABLET BY MOUTH EVERY DAY FOR 30 DAYS Orally Once a day for 90 days Active Centrum Silver as directed Orally Active Triamcinolone Acetonide 0.1 % APPLY 1 APPLICATION TO AFFECTED AREA EXTERNALLY TWICE A DAY FOR 30 DAYS for 30 Active Latanoprost 0.005 % 1 drop into affected eye in the evening Ophthalmic Once a day Active Omeprazole 20 MG 1 capsule 30 minutes before morning meal Orally Once a day for 30 day(s) Active Vitamin D3 1000 UNIT 1 capsule Orally On ce a day Active Tezspire 210 MG/1.91ML as directed Subcutaneous Active Aspir-Low 81 MG 1 tablet Orally Once a day for 30 day(s) Active Corazon Allergy 60 MG 1 tablet Orally Tw ice a day for 30 day(s) Active Atorvastatin Calcium 20 MG 1 tablet Orally Once a day for 30 days 02/04/2025 Active Problems Problem Type SNOMED Code ICD Code Onset Dates Problem Status W/U Status Risk Notes Problem Neuropathy ([id number]) Neuropathy (G62.9) Active confirmed Vital Signs Blood pressure systolic 132 mm Hg 02/05/20 25 Blood pressure diastolic 60 mm Hg 025 Height 62.25 in 02/04/2025 Weight 214 lbs 02/04/2025 BMI 38.82 kg/m2 02/04/2025 weight is up 11 pounds since 08-01-24 Encounters Encounter Location Date Provider Diagnosis Daniel Joiner MD [address] [place] [address] [place] [phone] 02/04/2025 Daniel Joiner Hypercholesterolemia E78.00 and Neuropathy G62.9 Assessments Encounter Date Diagnosis (ICD Code) Assessment Notes Treatment Notes Treatment Clinical Notes Section Notes 02/04/2025 Hypercholesterolemia (ICD-10 - E78.00) lab order given to patient, patient verbalized undrstandng of medication and directions for use. will continue to monitor, future labs pending 02/04/2025 Neuropathy (ICD-10 - G62.9) have explained the need to check shoes before putting them on Plan Of Treatment Medication Medication Name Sig Start Date Stop Date Notes Atorvastatin Calcium 20 MG 1 tablet Oral ly Once a day for 30 days 02/04/2025 Treatment Notes Assessment Notes Hypercholesterolemia lab order given to patient, patient verbalized undrstandng of medication and directions for use. will continue to monitor, future labs pending Neuropathy have explained the n eed to check shoes before putting them on Next Appt Details Follow Up: 3 Months, Reason: Provider Name:Daniel Ryan ier, 07/29/2025 07:45:00 AM, [address], [address], [place], [place], [phone], Provider Name:Daniel Ryan ier, 08/04/2025 10:30:00 AM, [address], [address], [place], [place], [phone], Progress Notes * Aretha KHAN LDOB:1949 (74 yo F)Acc No.[id number]:02/04/2025 Progress Notes Patient: Aretha KOEHLER Provider: Hilda Joiner MD :1950 A ge:74 Y S ex:Female Date:02/04/2025 Address:[address] [place] [address] [address], [facility] Subjective: * Chief Complaints: * 6 MONTH * HPI: S ymptom(s): patient is a74 yo female here fr 6 month follow up visit/ not walking any better. neuropathy in feet. makes it difficult to walk and can't drive. * ROS: G eneral/Constitutional: Denies C hills. D enies F atigue. D enies F ever. D enies H eadache. E NT: Denies S ore throat. R espiratory: Denies C ough. D enies S hortness of breath at rest. D enies S hortness of breath with exertion. G astrointestinal: Denies D iarrhea. D enies N ausea. * Medical History: * Surgical History: * Hospitalization/Major Diagno stic Procedure: * Medications: T akingTezspire 210 MG/1.91ML Solution Prefilled Syringe as directed Subcutaneous Aspir-Low 81 MG Tablet Delayed Release 1 tablet Orally Once a day Corazon Allergy 60 MG Tablet 1 tablet Orally Twice a day Centrum Silver Tablet as directed Orally Vitamin D3 1000 UNIT Capsule 1 capsule Orally Once a day Latanoprost 0.005 % Solution 1 drop into affected eye in the evening Ophthalmic Once a day Omeprazole 20 MG Capsule Delayed Release 1 capsule 30 minutes before morning meal Orally Once a day Triamcinolone Acetonide 0.1 % Cream APPLY 1 APPLICATION TO AFFECTED AREA EXTERNALLY TWICE A DAY FOR 30 DAYS Trelegy Ellipta 100-62.5-25 MCG/INH Aerosol Powder Breath Activated 1 puff Inhalation Once a day Citalopram Hydrobromide 20 MG Tablet TAKE 1 TABLET BY MOUTH ONCE DAILY Lisinopril-hydroCHLOROthiazide 10-12.5 MG Tablet TAKE 1 TABLET BY MOUTH EVERY DAY FOR 30 DAYS Orally Once a day Zolpidem Tartrate 5 MG Tablet 1 tablet at bedtime as needed Orally Once a day Taking Tezspire 210 MG/1.91ML Solution Prefilled Syringe as directed Subcutaneous Taking Aspir-Low 81 MG Tablet Delayed Release 1 tablet Orally Once a day Taking Corazon Allergy 60 MG Tablet 1 tablet Orally Twice a day Taking Centrum Silver Tablet as directed Orally Taking Vitamin D3 1000 UNIT Capsule 1 capsule Orally Once a day Taking Latanoprost 0.005 % Solution 1 drop into affected eye in the evening Ophthalmic Once a day Taking Omeprazole 20 MG Capsule Delayed Release 1 capsule 30 minutes before morning meal Orally Once a day Taking Triamcinolone Acetonide 0.1 % Cream APPLY 1 APPLICATION TO AFFECTED AREA EXTERNALLY TWICE A DAY FOR 30 DAYS Taking Trelegy Ellipta 100-62.5-25 MCG/INH Aerosol Powder Breath Activated 1 puff Inhalation Once a day Taking Citalopram Hydrobromide 20 MG Tablet TAKE 1 TABLET BY MOUTH ONCE DAILY Taking Lisinopril-hydroCHLOROthiazide 10-12.5 MG Tablet TAKE 1 TABLET BY MOUTH EVERY DAY FOR 30 DAYS Orally Once a day Taking Zolpidem Tartrate 5 MG Tablet 1 tablet at bedtime as needed Orally Once a day Not-Taking/PRNAleve 220 MG Tablet 1 tablet with food or milk as needed Orally every 12 hrs LORazepam 1 MG Tablet 1 tablet as needed Orally Twice a day ax needed Albuterol Sulfate (2.5 MG/3ML) 0.083% Nebulization Solution 3 ml as needed Inhalation every 6 hrs ProAir HFA 108 (90 Base) MCG/ACT Aerosol Solution 2 puffs as needed Inhalation every 6 hrs Flonase 50 MCG/ACT Suspension 1 spray in each nostril Nasally Once a day Amoxicillin 500 MG Tablet 1 tablet Orally Three times a day Medication List reviewed and reconciled with the patientNot-Taking/PRN Aleve 220 MG Tablet 1 tablet with food or milk as needed Orally every 12 hrs Not- Taking/PRN LORazepam 1 MG Tablet 1 tablet as needed Orally Twice a day ax needed Not- Taking/PRN Albuterol Sulfate (2.5 MG/3ML) 0.083% Nebulization Solution 3 ml as needed Inhalation every 6 hrs Not-Taking/PRN ProAir HFA 108 (90 Base) MCG/ACT Aerosol Solution 2 puffs as needed Inhalation every 6 hrs Not-Taking/PRN Flonase 50 MCG/ACT Suspension 1 spray in each nostril Nasally Once a day Not-Taking/PRN Amoxicillin 500 MG Tablet 1 tablet Orally Three times a day Medication List reviewed and reconciled with the patient * Allergies: N .K.D.A.yes[Allergies Verified] Objective: * Vitals: H t: 62.25, Wt: 214, BMI:38.82, BP:132/60, Wt-k.07. weight is up 11 pounds since 08-01-24. * P ast Orders: L ab:Lipid Panel (Order Date - 01/30/2025) (Collection Date & Time - 01/30/2025 08:41 AM) Value Reference Range Triglycerides 122 <150 - mg/dL Cholesterol 237 H <200 - mg/dL LDL Cholesterol Calculated 164 H <100 - mg/dL HDL Cholesterol 49 >40 - mg/dL * Examination: G eneral Examination: GENERAL APPEARANCE: a lert, well hydrated, in no distress.? HEAD: n ormocephalic. SKIN: w ith ecchymosis on arm. HEART: n o murmurs, rubs, gallops, regular rate and rhythm.? LUNGS: n o wheezes, rales, rhonchi, good air movement, clear to auscultation bilaterally. Assessment: * Assessment: 1. H ypercholesterolemia - E78.00 (Primary) 2 . N europathy - G62.9 ? Plan: * Treatment: 2. N europathy Notes: have explained the need to check shoes before putting them on * Procedure Codes: * Follow Up: 3 Months * * Sign off status: Completed true * Provider: Hilda Joiner MD Date: 0 02/04/2025 Generated for Nisreen lockwood/Jonathon/Francisco on: 1 08/26/2024 02:41 PM EST History and Physical Notes * HPI (History of Present Illness) Category Sub-Category Detail Notes Category Not es Symptom(s) patient is a74 yo female here fr 6 month follow up visit/ not walking any better. neuropathy in feet. makes it difficult to walk and can't drive Examination Category Sub-Category Detail Notes Category Not es General Examination GENERAL APPEARANCE: alert, w ell hydrated, in no distress HEAD: normocephalic HEART: no murmurs, rubs, ga llops, regular rate and rhythm LUNGS: no wheezes, rales, r honchi, good air movement, clear to auscultation bilaterally SKIN: with ecchymosis on a rm
--- OUTSIDE RECORDS SUMMARY | 2025-03-06 04:05 | XMS_ITS ---
Author Organization Daniel Joiner MD Address [address] [place] [phone] Care Team Providers Care Health Technical Writer Name Role Phone Daniel Joiner Primary Care Provider REASON FOR VISIT RF Atorvastatin Medications Medication SIG (Take, Route, Frequency, Duration) Notes Start Date End Date Status Atorvastatin Calcium 20 MG 1 tablet Oral ly Once a day for 90 days 02/04/2025 Active Encounters Encounter Location Date Provider Diagnosis Daniel Joiner MD [address] [place] [address] [place] [phone] 2025 Daniel Joiner Hypercholesterolemia E78.00 Assessments Encounter Date Diagnosis (ICD Code) Assessment Notes Treatment Notes Treatment Clinical Notes Section Notes 2025 Hypercholesterolemia (ICD-10 - E78.00) Plan Of Treatment Medication Medication Name Sig Start Date Stop Date Notes Atorvastatin Calcium 20 MG 1 tablet Oral ly Once a day for 90 days 02/04/2025 Next Appt Details Provider Name:Daniel chandler, 07/29/2025 07:45:00 AM, [address] [place] [address], [address], [phone], Provider Name:Daniel chandler, 08/04/2025 10:30:00 AM, [address] [place] [address], [address], [phone], Progress Notes * KAYCEEAretha LDOB:1949 (75 yo F)Acc No.[id number]:2025 Patient: Aretha KOEHLER :1950 A ge:75 Y S ex:Female Address:[address] [place] [address] [address], [place] [address] * Refills Refill Atorvastatin Calcium Tablet, 20 MG, Orally, 90 Tablet, 1 tablet, Once a day, 90 days, Refills=3 * true * Date: Generated for Nisreen lockwood/Jonathon/Flashitting on: 08/26/2024 02:41 PM EST
--- OUTSIDE RECORDS SUMMARY | 2025-03-11 04:29 | XMS_ITS ---
Author Organization Daniel Joiner MD Address [address] [place] [phone] Care Team Providers Care Clinic Office Coordinator Name Role Phone Daniel Joiner Primary Care Provider REASON FOR VISIT refill Medications Medication SIG (Take, Route, Frequency, Duration) Notes Start Date End Date Status Atorvastatin Calcium 20 MG 1 tablet Oral ly Once a day for 90 days 02/04/2025 Active Encounters Encounter Location Date Provider Diagnosis Daniel Joiner MD [address] [place] [address] [place] [phone] 03/11/2025 Daniel Joiner Hypercholesterolemia E78.00 Assessments Encounter Date Diagnosis (ICD Code) Assessment Notes Treatment Notes Treatment Clinical Notes Section Notes 03/11/2025 Hypercholesterolemia (ICD-10 - E78.00) Plan Of Treatment Medication Medication Name Sig Start Date Stop Date Notes Atorvastatin Calcium 20 MG 1 tablet Oral ly Once a day for 90 days 02/04/2025 Next Appt Details Provider Name:Daniel chandler, 07/29/2025 07:45:00 AM, [address] [place] [address], [address], [phone], Provider Name:Daniel chandler, 08/04/2025 10:30:00 AM, [address] [place] [address], [address], [phone], Progress Notes * KAYCEEAretha LDOB:1949 (75 yo F)Acc No.[id number]:03/11/2025 Patient: Aretha KOEHLER :1950 A ge:75 Y S ex:Female Address:[address] [place] [address] [address], [place] [address] * Refills Refill Atorvastatin Calcium Tablet, 20 MG, Orally, 90, 1 tablet, Once a day, 90 days, Refills=3 * true * Date: Generated for Nisreen lockwood/Jonathon/Flashitting on: 08/26/2024 02:44 PM EST
--- OUTSIDE RECORDS SUMMARY | 2025-05-08 04:00 | XMS_ITS ---
Author Organization Daniel Joiner MD Address [address] [place] [phone] Care Team Providers Care Quality Assurance Name Role Phone Daniel Joiner Primary Care Provider REASON FOR VISIT fasting lipids liver Encounters Encounter Location Date Provider Diagnosis Daniel Joiner MD [address] [place] [address] [place] [phone] 05/08/2025 Daniel Joiner Plan Of Treatment Next Appt Details Provider Name:Daniel chandler, 07/29/2025 07:45:00 AM, [address] [place] [address], [address], [phone], Provider Name:Daniel chandler, 08/04/2025 10:30:00 AM, [address] [place] [address], [address], [phone], Progress Notes * Aretha KHAN LDOB:1949 (75 yo F)Acc No.[id number]:05/08/2025 Progress Note Patient: Chip MIXWILLKatherineAretha L Provider: Hilda Joiner MD :1950 A ge:75 Y S ex:Female Date:05/08/2025 Address:[address], [facility] Subjective: * Chief Complaints: * 1 . Fasting lipids liver. * Medical History: Objective: * Vitals: Assessment: Plan: * Treatment: * * The named appointment provid er may or may not be the originator of this progress note, and it is not deemed complete until electronically signed by the appointment provider. Sign off status: Pending * Provider: Hilda Joiner MD Date: 1 Generated for Nisreen lockwood/Jonathon/Flashitting on: 1 08/26/2024 02:42 PM EST
--- OUTSIDE RECORDS SUMMARY | 2025-05-15 05:45 | XMS_ITS ---
Author Organization Daniel Joiner MD Address [address] [place], [place] [id number] Care Team Providers Care Datastage Architect Name Role Phone Daniel Joiner Primary Care Provider Allergies No Known Allergies REASON FOR VISIT 3 month Medications Medication SIG (Take, Route, Frequency, Duration) Notes Start Date End Date Status Flonase 50 MCG/ACT 1 spray in each nost ril Nasally Once a day 10/11/2012 Not-Taking Amoxicillin 500 MG 1 tablet Orally Thre e times a day for 10 days 08/08/2014 Not-Taki ng Zolpidem Tartrate 5 MG 1 tablet at bedti ca as needed Orally Once a day for 10 days 05/15/2025 Active Atorvastatin Calcium 20 MG 1 tablet Orally Once a day 02/04/2025 Active Citalopram Hydrobromide 20 MG TAKE 1 TABLET BY MOUTH ONCE DAILY Active Lisinopril-hydroCHLOROthi azide 10-12.5 MG TAKE ONE-HALF TABLET BY MOUTH DAILY ONCE DAILY for 90 Active Aleve 220 MG 1 tablet with food o r milk as needed Orally every 12 hrs Not-Taking LORazepam 1 MG 1 tablet as needed Orally Twice a day ax needed for 2 days 01/13/2022 Not-Taking Albuterol Sulfate (2.5 MG/3ML) 0.083% 3 ml as needed Inhalation every 6 hrs Not-Takin g ProAir HFA 108 (90 Base) MCG/ACT 2 puffs as needed Inhalation every 6 hrs for 30 days 03/01/2019 Not-Taking Triamcinolone Acetonide 0.1 % APPLY 1 APPLICATION TO AFFECTED AREA EXTERNALLY TWICE A DAY FOR 30 DAYS for 30 Active Trelegy Ellipta 100-62.5-25 MCG/INH 1 puff Inhalation Once a day Active Vitamin D3 1000 UNIT 1 capsule Orally On ce a day Active Latanoprost 0.005 % 1 drop into affected eye in the evening Ophthalmic Once a day Active Omeprazole 20 MG 1 capsule 30 minutes before morning meal Orally Once a day for 30 day(s) Active Tezspire 210 MG/1.91ML as directed Subcutaneous Active Aspir-Low 81 MG 1 tablet Orally Once a day for 30 day(s) Active Corazon Allergy 60 MG 1 tablet Orally Tw ice a day for 30 day(s) Active Centrum Silver as directed Orally Active Vital Signs Blood pressure systolic 130 mm Hg 05/15/20 25 Blood pressure diastolic 56 mm Hg 025 Height 62.25 in 05/15/2025 Weight 212 lbs 05/15/2025 BMI 38.46 kg/m2 05/15/2025 weight is down 2 pounds [facility] e 02-04-25 Encounters Encounter Location Date Provider Diagnosis Daniel Joiner MD [address] [place] [id number] 05/15/2025 Daniel Joiner Imbalance R26.89 ; Hypercholesterolemia E78.00 and Dysthymia F34.1 Assessments Encounter Date Diagnosis (ICD Code) Assessment Notes Treatment Notes Treatment Clinical Notes Section Notes 05/15/2025 Imbalance (ICD-10 - R26.89) advised to do walking in the hallway 05/15/2025 Hypercholesterolemia (ICD-10 - E78.00) doing well on meds and no sideeffects 05/15/2025 Dysthymia (ICD-10 - F34.1) doing well Plan Of Treatment Medication Medication Name Sig Start Date Stop Date Notes Zolpidem Tartrate 5 MG 1 tablet at bedti me as needed Orally Once a day for 10 days 05/15/2025 Atorvastatin Calcium 20 MG 1 tablet Orally Once a day 01/08 Citalopram Hydrobromide 20 MG TAKE 1 TAB LET BY MOUTH ONCE DAILY Treatment Notes Assessment Notes Imbalance advised to do walkin g in the hallway Hypercholesterolemia doing well on meds and no sideeffects Dysthymia doing well Next Appt Details Provider Name:Daniel Ryan ier, 07/29/2025 07:45:00 AM, [address], [address], [place], [place], [phone], Provider Name:Daniel Ryan ier, 08/04/2025 10:30:00 AM, [address], [address], [place], [place], [phone], Progress Notes * Aretha KHAN LDOB:1949 (75 yo F)Acc No.[id number]:05/15/2025 Progress Notes Patient: Aretha KOEHLER Provider: Hilda Joiner MD :1950 A ge:75 Y S ex:Female Date:05/15/2025 Address:[address] [place] [address] [address], [id number] Subjective: * Chief Complaints: * 3 month * HPI: S ymptom(s): patient is a 75 yo female here for 3 month follow up visit. * ROS: G eneral/Constitutional: Denies C [place]. [...] TAKE 1 TABLET BY MOUTH ONCE DAILY Zolpidem Tartrate 5 MG Tablet 1 tablet at bedtime as needed Orally Once a day Lisinopril-hydroCHLOROthiazide 10-12.5 MG Tablet TAKE ONE-HALF TABLET BY MOUTH DAILY ONCE DAILY Atorvastatin Calcium 20 MG Tablet 1 tablet Orally Once a day Taking Tezspire 210 [...] 1 TABLET BY MOUTH ONCE DAILY Taking Zolpidem Tartrate 5 MG Tablet 1 tablet at bedtime as needed Orally Once a day Taking Lisinopril- hydroCHLOROthiazide 10-12.5 MG Tablet TAKE ONE-HALF TABLET BY MOUTH DAILY ONCE DAILY Taking Atorvastatin Calcium 20 MG Tablet 1 tablet Orally Once a day Not-Taking/PRNAleve 220 MG [...] milk as needed Orally every 12 hrs Not-Taking/PRN LORazepam 1 MG Tablet 1 tablet as needed Orally Twice a day ax needed Not-Taking/PRN Albuterol Sulfate (2.5 MG/3ML) 0.083% Nebulization Solution [...] Objective: * Vitals: H t: 62.25, Wt: 212, BMI:38.46, BP:130/56, Wt-k.16. weight is down 2 pounds since 02-04-25. * Examination: G eneral Examination: GENERAL APPEARANCE: a lert, well hydrated, in no distress.? HEAD: n ormocephalic. SKIN: g ood turgor. HEART: n o murmurs, rubs, gallops, regular rate and rhythm.? LUNGS: n o wheezes, rales, rhonchi, good air movement, clear to auscultation bilaterally. Assessment: * Assessment: 1. I mbalance - R26.89 (Primary) 2 . H ypercholesterolemia - E78.00 ? 3 . D ysthymia - F34.1 Plan: * Treatment: 2. H ypercholesterolemia Continue Atorvastatin Calcium Tablet, 20 MG, 1 tablet, Orally, Once a day. Notes: doing well on meds and no sideeffects 3. D ysthymia Refill Zolpidem Tartrate Tablet, 5 MG, 1 tablet at bedtime as needed, Orally, Once a day, 10 days, 10 Tablet, Refills 0; C ontinue Citalopram Hydrobromide Tablet, 20 MG, TAKE 1 TABLET BY MOUTH ONCE DAILY. Notes: doing well * Procedure Codes: * * Sign off status: Completed true * Provider: Hilda Joiner MD Date: 07/15/2024 Generated for Nisreen lockwood/Jonathon/Flashitting on: 08/26/2024 02:42 PM EST History and Physical Notes * HPI (History of Present Illness) Category Sub-Category Detail Notes Category Not es Symptom(s) patient is a 75 yo female here for 3 month follow up visit Examination Category Sub-Category Detail Notes Category Not es General Examination GENERAL APPEARANCE: alert, w ell hydrated, in no distress HEAD: normocephalic HEART: no murmurs, rubs, ga llops, regular rate and rhythm LUNGS: no wheezes, rales, r honchi, good air movement, clear to auscultation bilaterally SKIN: good turgor
--- NOTE | 2025-06-25 11:09 | MHC.OFFVIS ---
Intake Visit Reasons: 6m follow up Allergies No Known Allergies Allergy (Verified 12/15/22 11:58) PFSH Medical History History of tuberculosis Thyroid nodule Surgical History Hx of hysterectomy Hx of needle biopsy Family History Mother Stroke Heart attack Father Heart attack Social History Alcohol intake: never Patient Tobacco Use Status: Never used Tobacco Coding
--- NOTE | 2025-06-25 12:11 | A.OFFVIS_ITS ---
Intake Visit Reasons: 6m follow up Allergies No Known Allergies Allergy (Verified 12/15/22 11:58) Medication List - Last Reconciled 06/25/25 by Chente Mathur MD albuterol sulfate mg inhalation Q6H PRN aspirin 81 mg PO DAILY atorvastatin (Lipitor) 20 mg PO DAILY cholecalciferol (vitamin D3) 10 mcg PO DAILY citalopram 20 mg PO DAILY fexofenadine (Corazon Allergy) 180 mg PO DAILY bilzjrlemef-lrjhlsvad-tsxxjmei 200-62.5-25 mcg (Trelegy Ellipta) 1 inh inhalation DAILY latanoprost 0.005% 0 drps ophthalmic (eye) lisinopril-hydrochlorothiazide 10-12.5 mg 1 tab PO DAILY montelukast 10 mg PO BEDTIME yqgabyia-dml-zshj-folic-vit K1 8 mg-400 mcg- 80 mcg (Centrum Chewables) 1 tab- cap PO DAILY omeprazole 20 mg PO DAILY HPI Comments Details: Had one fall. Balance still off and sways when she stands. Using the walker at home. Can't figure out how to use a cane, Had one fall down the stairs as she could not feel the stair. Gets dizzy when she gets up quick. Unsteady when first getting up.? Stumbles at times, but catches herself. No falls. [facility] Bilateral leg weakness. Has difficulty stepping over tub. Has intermittent tingling in feet, R > L, and feels like standing on jorge a. Right big toe and calf tingling. No pain. Does not wake from sleep. Intermittent tingling in R hand. Hx of balance problems that started around 2019 and have gradually gotten worse. She walks like she is drunk with a peculiar gait. No further falls, but fumbles a bit. Uses contact guidance in the house and a rollator walker outside of house. She had MRI of the brain which shows age related changes and cervical spine which shows moderate to severe C3-4 stenosis with no abnormal cord signal. She has some tingling in the right hand and at times her legs feel weak. She has lost some muscle mass in her calves. Bladder control is okay. She gets occasional numbness in her feet, but not persistent. She gets headaches a couple times a week. [facility] Medical History History of tuberculosis Thyroid nodule Surgical History Hx of hysterectomy Hx of needle biopsy Family History Mother Stroke Heart attack Father Heart attack Social History Alcohol intake: never Patient Tobacco Use Status: Never used Tobacco Review of Systems Const Details: General/Constitutional:? Change in appetitedenies.? Chillsdenies.? Fatigueadmits.? Feverdenies.? Weight gaindenies.? Weight lossadmits. ???Sleep:? Difficulty getting to sleepdenies.? Difficulty maintaining sleepdenies?.? Urge to move legsdenies.? Teeth grindingdenies.? Shouting or Kicking during sleep denies.? Abnormal behavior during sleepdenies.? Excessive sleepdenies.? Snoring denies.? Daytime sleepinessdenies. ???Respiratory:? Shortness of breathadmits.? Chest paindenies.? Coughdenies. ???Cardiovascular:? Chest pain at restdenies.? Chest pain with exertiondenies.? Claudicationdenies .? Dizzinessdenies.? Fluid accumulation in the legsdenies.? Irregular heartbeat denies.? Palpitationsadmits. ???Gastrointestinal:? Abdominal paindenies.? Constipationdenies.? Diarrheadenies.? Difficulty swallowingdenies.? Heartburndenies.? Nauseadenies.? Rectal bleedingdenies. ???Genitourinary:? Frequent urinationdenies.? Urgencydenies.? Incontinencedenies.? Erectile Dysfunctiondenies. ???Musculoskeletal:? Neck paindenies.? Back paindenies.? Muscle achesdenies.? Painful jointsdenies.? Sciaticadenies.? Weaknessdenies. ???Neurologic:? Difficulty swallowingdenies.? Balance difficultyadmits.? Coordinationnormal.? Difficulty speakingdenies.? Dizzinessadmits.? Faintingdenies.? Gait abnormality denies.? Headachedenies.? Loss of strengthdenies.? Loss of use of extremity denies.? Low back paindenies.? Memory lossdenies.? Seizuresdenies.? Ticsdenies.? Tingling/Numbnessbilateral upper extremities.? Transient loss of visiondenies.? Tremordenies. ???Psychiatric:? Anxietydenies.? Auditory/visual hallucinationsdenies.? Delusionsdenies.? Depressed mooddenies.? Stressorsdenies.? Substance abusedenies.? Suicidal thoughtsdenies. Physical Exam Neuro Other: Neurological: Abnormal neurological findings:??Mild weakness in both deltoids 5 minus/5.?Hip flexor 5/5. Weakness of the tibialis anterior perinei 5-/5, EDB and EHL graded at 4+/5. Absent right ankle reflex. Right knee jerk 2-3+ left knee jerk 1-2+. Upper extremity reflexes 1+?blunting of vibration and pin prick sensation below tarsometatarsal joints. Plantar responses are equivocal. Walks with a waddle with a moderately broad-based and ataxic gait, using walker. Able to walk tandem with difficulty.?Mental Status:??alert and oriented X 3,?Normal attention, orientation, memory and affect.?Cranial Nerves:??Pupils are equal, round and reactive to light. Fundoscopy shows normal disc bilaterally. External occular muscles are intact. Visual sarmiento are full, no ptosis. Face is symmetrical, no facial weakness or droop. Facial sensations are normal. Tongue protrudes in midline. Palate elevates symmetrically. Shoulder shrugging is normal..?Motor Examination:??As above otherwise Normal muscle tone, bulk and strength,?No atrophy or fasciculations,?No drift of the extended upper extremities,?Deep tendon reflexes are as above?,?Plantars are equivocal.?Straight Leg Raising:??90 degrees.?Sensory Exam:??Distal sensory abnormalities in the lower extremities as above otherwise Normal light touch, temperature, pinprick, vibration and joint- position sensations?,?Rhomberg sign is absent.?Coordination:??no ataxia,?no titubation,?wyzxbe-ra-bajt, exoj-wcre-azmt test and rapid alternating movements were normal.?Gait Exam:??As described above.?Cerebellar Signs:??Vrrykt-te-vvzm and aicn-sp-rfhy is normal,?no dysdiadochokinesia?.?Extrapyramidal System:??No tremor, rigidity with normal facial expressions,?No bradykinesia, no bradyphrenia. Normal arm swing and posture. No propulsion or retropulsion.?Speech:??Normal,?no dysphasia or dysarthria..? Mini Mental Status Exam: Level of Consciousness:??Alert.?Orientation:??Knows correct year, month, date, day and season,?Knows correct city, county and state. Knows correct location and floor.?Registration:??Able to register 3 objects.?Attention:??Serial 7's performed accurately.?Recall:??Able to recall 3 out of 3 objects.?Language:??Normal spontaneous speech, fluency, repetition,naming, comprehension, reading and writing.?Total Score:??30/30.? Assessment & Plan Assessment & Plan (1) Peripheral neuropathy: Comment: MRI discs of brain C spine and LS spine reviewed with patient 11/09/22 NCV/EMG ALL Moderate right and a mild left Carpal tunnel syndrome in the upper extremities. Borderline slowing of motor nerves in the lower extremities with sensory nerves absent consistent with sensory neuropathy. Normal EMG in the right C5-T1 and right L5-S1 innervated muscles. Code(s): G62.9 - Polyneuropathy, unspecified Category: Medical (2) Cervical stenosis of spinal canal: Code(s): M48.02 - Spinal stenosis, cervical region Category: Medical (3) Lumbar radiculopathy: Code(s): M54.16 - Radiculopathy, lumbar region Category: Medical Plan Use walker all the time and take extra care to keep from falling. Coding Level of Care Code Est Pt Level 4 (85556) Diagnoses Peripheral neuropathy G62.9 Cervical stenosis of spinal canal M48.02 Lumbar radiculopathy M54.16
--- OUTSIDE RECORDS SUMMARY | 2025-06-25 14:45 | XMS_ITS | Patient Health Record ---
Author Organization Daniel Joiner MD Address [address] [place], [place] [id number] Care Team Providers Care Roll Grinder Name Role Phone Daniel Joiner Primary Care Provider [phone] Allergies No Known Allergies Results Component Value Reference Range Notes UA CC w/rflx Micro + Cult Reviewed date:08/04/2024 05:00:28 PM Interpretation: Performing Lab:[address] [id number] Notes/Report: [id number] Urine, Clean Catch Color Urine Yellow Appearance Urine Clear PH 5.5 5.0-9.0 Glucose Urine UA Negative Negative mg/dL Urine Blood Negative Negative Specific [place] - Urine 1.020 1.005-1.025 Urine Protein Negative Neg-Trace mg/dL Urine Ketones Negative Negative mg/dL Nitrite Urine Negative Negative Leukocyte Esterase Urine Negative Negative Lipid Panel Reviewed date:01/30/2025 12:31:07 PM Interpretation: Performing Lab:[address] [id number] Notes/Report: Triglycerides 122 <150 mg/dL Desirable Triglyceride: [...] low results in patients with liver disease. Lipid Panel Reviewed date:05/09/2025 12:33:34 PM Interpretation: Performing Lab:[address] [id number] Notes/Report: Triglycerides 69 <150 mg/dL Desirable Triglyceride: less than 150 mg/dL Borderline High Triglyceride 150-199 mg/dL High Triglyceride: 200-499 mg/dL Very High Triglyceride: greater than or equal to 5OO mg/dL Cholesterol 159 <200 mg/dL Desirable Cholesterol: less than 200 mg/dL Borderline High Cholesterol: 200-239 mg/dL High Cholesterol: greater than 239 mg/dL LDL Cholesterol Calculated 98 <100 mg/dL Desirable LDL: less than 100 mg/dL Near Optimal/Above Optimal LDL: 110-129 mg/dL Borderline High LDL: 130-159 mg/dL High LDL: 160-189 mg/dL Very High LDL: greater than or equal to 190 mg/dL HDL Cholesterol 48 >40 mg/dL Desirable HDL: greater than 40 mg/dL Note: This HDL assay may give artificially low results in patients with liver disease. Liver Panel Reviewed date:05/09/2025 12:33:11 PM Interpretation: Performing Lab:[facility] [place], [address] [place] [id number] Notes/Report: Bilirubin Total 0.3 0.0-1.0 mg/dL Bilirubin Direct 0.1 0.0-0.5 mg/dL Aspartate Amino Transferase 21 5-31 U/L Alanine Aminotransferase 23 0-31 U/L Total Protein 6.9 6.5-8.0 g/dL Albumin Level 4.3 3.5-5.0 g/dL Alkaline Phosphatase 111 39-117 U/L Reason For Referral No Information Medications Medication SIG (Take, Route, Frequency, Duration) Notes Start Date End Date Status Aspir-Low 81 MG 1 tablet Orally Once a day for 30 day(s) Active Corazon Allergy 60 MG 1 tablet Orally Tw ice a day for 30 day(s) Active Aleve 220 MG 1 tablet with food o r milk as needed Orally every 12 hrs Not-Taking Centrum Silver as directed Orally Active LORazepam 1 MG 1 tablet as needed Orally Twice a day ax needed for 2 days 01/13/2022 Not-Taking Vitamin D3 1000 UNIT 1 capsule Orally On ce a day Active Albuterol Sulfate (2.5 MG/3ML) 0.083% 3 ml as needed Inhalation every 6 hrs Not-[place] g Latanoprost 0.005 % 1 drop into affected eye in the evening Ophthalmic Once a day Active ProAir HFA 108 (90 Base) MCG/ACT 2 puffs as needed Inhalation every 6 hrs for 30 days 03/01/2019 Not-Taking Omeprazole 20 MG 1 capsule 30 minutes before morning meal Orally Once a day for 30 day(s) Active Flonase 50 MCG/ACT 1 spray in each nost ril Nasally Once a day 10/11/2012 Not-Taking Triamcinolone Acetonide 0.1 % APPLY 1 APPLICATION TO AFFECTED AREA EXTERNALLY TWICE A DAY FOR 30 DAYS for 30 Active Amoxicillin 500 MG 1 tablet Orally Thre e times a day for 10 days 08/08/2014 Not-Takzayra ng Zolpidem Tartrate 5 MG 1 tablet at bedti me as needed Orally Once a day for 10 days 05/15/2025 Active Atorvastatin Calcium 20 MG 1 tablet Orally Once a day 02/04/2025 Active Trelegy Ellipta 100-62.5-25 MCG/INH 1 puff Inhalation Once a day Active Citalopram Hydrobromide 20 MG TAKE 1 TABLET BY MOUTH ONCE DAILY Active Tezspire 210 MG/1.91ML as directed Subcutaneous Active Lisinopril-hydroCHLOROthi azide 10-12.5 MG TAKE ONE-HALF TABLET BY MOUTH DAILY ONCE DAILY for 90 Active Immunizations Vaccine Route Administration Date Status Comme nts DECLINED, FLU Unknown 05/03/2013 Administered Flu Vaccine IM Intramuscular 03/29/2016 Administered [facility] Flu Vaccine IM Intramuscular 04/13/2017 Administered pt wa s given the high dose at [facility]. Flu Vaccine IM Intramuscular 03/23/2018 Administered pt wa s given flu vaccine for over 65 at the [facility]. Influenza High Dose IM Intramuscular 03/27/2019 [facility]ered [facility] Influenza High Dose NS Nasal 02/28/2020 Administered Pt was given the vaccine at [facility]. Covid Vaccine Unknown 09/08/2020 Administered Moderna SARS-COV-2 Moderna Unknown 10/06/2020 Administered Influenza High Dose IM Intramuscular 03/22/2021 Administered SARS-COV-2 Moderna Unknown 05/06/2021 Administered SARS-COV-2 Moderna Unknown 12/03/2021 Administered SARS-COV-2 Moderna Unknown 04/20/2023 Administered [facility] Flu Vaccine Unknown 03/14/2014 Refused PPSV23 (Pnemovax) [...] Problem Status W/U Status Risk Notes Problem 353073121 Thyroid nodule (E04.1) Active confirm ed Problem Neuropathy (350667511) Neuropathy (G62.9) Active confirmed Problem Insomnia (861483835) Insomnia (G47.00) Active confirmed Problem 77021212 Anxiety (F41.9) Active confirmed Problem Sinusitis (80324256) Sinusitis (J32.9) Active confirmed Problem 2767476 Primary insomnia (F51.01) Active confirmed Problem 019840106 Mild intermitten t asthma without complication (J45.20) Active confirmed Problem Benign essential hypertension (3031575) Benign essential hypertension (I10) Active confirmed Problem 48407693 Heart murmur (R01.1) Active confirmed Problem 07268429 Intrinsic eczema (L20.84) Active confirmed Problem 02504835 Nonrheumatic aor tic valve insufficiency (I35.1) Active confirmed Problem 041895016835685 Carpal tunnel sy ndrome of right wrist (G56.01) Active confirmed Problem 339112445 Leukocytosis, unspecified type (D72.829) Active confirmed Problem 56752102 Dysthymia (F34.1) Active confirmed Problem 344144685 History of tuberculosis (Z86.11) Active confirmed Problem 844066062 Incoordination (R27.9) Active confirm ed Problem Idiopathic peripheral neuropathy (73826038) Idiopathic peripheral neuropathy (G60.9) Active confirmed Problem 198411128 Body mass index (BMI) of 39.0-39.9 in adult (Z68.39) Active confirmed Problem 418872983 Body mass index (BMI) of 38.0-38.9 in adult (Z68.38) Active confirmed Problem 51785555 Hypercholesterol emia (E78.00) Active confirmed Problem 284900523 Imbalance (R26.89) Active confirmed Problem 794291211 Osteopenia deter mined by x-ray (M85.80) Active confirmed Problem 2220480315981942 Bilateral hip j oint arthritis (M16.0) Active confirmed Vital Signs Blood pressure diastolic 56 mm Hg 05/15/2025 marii ght is down 2 pounds since 02-04-25 Height 62.25 in 05/15/2025 weight is down 2 pounds since 02-04-25 Blood pressure systolic 130 mm Hg 05/15/2025 weig ht is down 2 pounds since 02-04-25 Weight 212 lbs 05/15/2025 weight is down 2 pounds since 02-04-25 BMI 38.46 kg/m2 05/15/2025 weight is down 2 pounds since 02-04-25 Encounters Encounter Location Date Provider Diagnosis Daniel Joiner MD [address] [place] [address] [id number] 08/01/2024 Daniel Joiner Dysthymia F34.1 ; An nual physical exam Z00.00 ; Benign essential hypertension I10 ; Polyp of colon, unspecified part of colon, unspecified type K63.5 ; Mild intermittent asthma without complication J45.20 ; Insomnia G47.00 ; Hypercholesterolemia E78.00 and Depression screening Z13.31 Daniel Joiner MD [address] [place] [address] Drive [address] [place] [address] [id number] 02/04/2025 Daniel Bombardier Hypercholesterolemia E78.00 and Neuropathy G62.9 Daniel Joiner MD [address] [place] [address] [id number] 05/15/2025 Daniel Joiner Imbalance R26.89 ; Hypercholesterolemia E78.00 and Dysthymia F34.1 Daniel Joiner MD [address] [place] [address] [id number] 08/12/2024 Daniel Joiner Dysthymia F34.1 and Benign essential hypertension I10 Daniel Joiner MD [address] [place] [address] [id number] 2025 Daniel Joiner Hypercholesterolemia E78.00 Daniel Joiner MD [address] [place] [address] [id number] 03/11/2025 Daniel Joiner Hypercholesterolemia E78.00 Daniel Joiner MD [address] [place] [address] [id number] 10/18/2024 Daniel Joiner MD [address] [place] [address] [id number] 10/18/2024 Daniel Joiner MD [address] [place] [address] [id number] 01/28/2025 Daniel Joiner Dysthymia F34.1 Daniel Joiner MD [address] [place] [address] [id number] 01/28/2025 Daniel Joiner Assessments Encounter Date Diagnosis [...] to check shoes before putting them on 05/15/2025 Imbalance (ICD-10 - R26.89) advised to do walking in the hallway 05/15/2025 Hypercholesterolemia (ICD-10 - E78.00) doing well on meds and no sideeffects 08/12/2024 Dysthymia (ICD-10 - F34.1) 2025 Hypercholesterolemia (ICD-10 - E78.00) 03/11/2025 Hypercholesterolemia (ICD-10 - E78.00) 01/28/2025 Dysthymia (ICD-10 - F34.1) 08/01/2024 Benign essential hypertension (ICD-10 - I10) stable, will continue current regiment 05/15/2025 Dysthymia (ICD-10 - F34.1) doing well 08/12/2024 Benign essential hypertension (ICD-10 - I10) [...] CONTRAST 07/14/2022 MRI CERVICAL SPINE NO CONTRAST 3 XR CHEST 2 VIEW PA & LAT 05/03/2013 XR CHEST 2 VIEW PA & LAT 01/08/2021 BONE DENSITY DEXA 11/23/2020 US THYROID BIOPSY FNA GUIDE 10/14/2022 ECG 30 day event monitor 07/14/2022 US thyroid 09/22/2022 Next Appt Details Provider Name:Daniel chandler, 07/29/2025 07:45:00 AM, [address] [place] [address], [address], [place], [place], [id number], Provider Name:Daniel chandler, 08/04/2025 10:30:00 AM, [address], [address], [place], [place], [id number], Insurance Providers Payer Name Payer Address Payer Phone Subscriber Number Group Number Insured Name Patient Relationship to Insured Coverage Start Date Coverage End Date [employer] [facility] [address] [place] [phone] [id number] Aretha Khan Self - patient is the insured MEDIC[employer] [address] [place] [address] [id number] Angelitoevgeny Aretha Self - patient is the insured [...]
== END 2025-06-25 12:29 | disposition home or self-care (01) ==
PROVIDERS: PCP Internal Medicine; Visit Provider Psychiatry & Neurology Neurology
DX: G62.9 Polyneuropathy, unspecified (principal); M48.02 Spinal stenosis, cervical region; M54.16 Radiculopathy, lumbar region
CPT/HCPCS: 99214

== ENCOUNTER → 2025-06-25 11:06 | Outpatient (BNVA) | payer MEDICARE, SELFPAY | PROVIDERS: PCP Internal Medicine; Visit Provider Psychiatry & Neurology Neurology | DX: M54.16 Radiculopathy, lumbar region (principal); G62.9 Polyneuropathy, unspecified; M48.02 Spinal stenosis, cervical region | CPT/HCPCS: 99212 ==